=== PATIENT | male | born 1970 | race Caucasian/White ===

== ENCOUNTER 2022-07-12 23:31 | Inpatient (IN) | payer BC ==
[2022-07-12] MEDS ORDERED: ONDANSETRON 4 MG/2 ML VIAL IVP STA (23:47)
[2022-07-12] MEDS ORDERED: HEPARIN SODIUM 1,000 UN/ML (10ML VL) IV ONE (23:47)
[2022-07-12] MEDS ORDERED: SODIUM CHLORIDE 0.9% 1,000 ML IV STA (23:47)
[2022-07-12] MEDS ORDERED: MORPHINE SULFATE 2 MG/ML SYRINGE IVP STA (23:47)
[2022-07-12] MEDS ORDERED: ASPIRIN 81 MG PO STA (23:47)
[2022-07-12] MEDS ORDERED: DEXTROSE 5% IN WATER 50 ML BAG ONE (23:50)
[2022-07-12] MEDS ORDERED: AMIODARONE 50 MG/ML 3 ML VIAL IV ONE (23:50)
[2022-07-12] MEDS ORDERED: ATORVASTATIN 80 MG TAB PO STA (23:53)
[2022-07-12] MEDS ORDERED: NALOXONE 0.4 MG/ML 1 ML VIAL IV PRN (23:57)
--- NOTE | 2022-07-12 23:59 | ED ---
General Adult HPI - General Chief complaint: Chest Pain Stated complaint: Chest Pain,Vomiting Time Seen by Provider: 07/12/22 23:41 Source: patient, RN notes reviewed, old records reviewed Mode of arrival: ambulatory - History of Present Illness Initial comments: 51 yo male presenting with chest pressure for about 2 hours. Patient has no prior history of CAD. He was brought to room 2 and EKG was obtained immediately. This was showing ST segment elevation inferior leads with reciprocal change. medical laboratory assistant was activated. Patient is a nonsmoker. No history diabetes. Patient vomited once prior to arrival. - Related Data Allergies Allergy/AdvReac Type Severity Reaction Status Date / Time No Known Allergies Allergy Verified 07/12/22 23:39 Review of Systems ROS Statement: Those systems with pertinent positive or pertinent negative responses have been documented in the HPI. ROS Other: All systems not noted in ROS Statement are negative. Past Medical History Past Medical History: No Reported History History of Any Multi-Drug Resistant Organisms: None Reported Past Surgical History: No Surgical Hx Reported Past Psychological History: No Psychological Hx Reported Smoking Status: Former smoker Past Alcohol Use History: None Reported Past Drug Use History: None Reported General Exam General appearance: in distress Head exam: Present: atraumatic Eye exam: Present: normal appearance ENT exam: Present: normal exam Respiratory exam: Present: normal lung sounds bilaterally. Absent: respiratory distress Cardiovascular Exam: Present: regular rate, normal rhythm GI/Abdominal exam: Present: soft. Absent: distended, tenderness, guarding Extremities exam: Present: normal inspection, normal capillary refill. Absent: pedal edema, calf tenderness Neurological exam: Present: alert, oriented X3 Skin exam: Present: diaphoretic, pallor Course Vital Signs 07/12/22 07/12/22 23:34 23:54 Temperature 97.5 F L Pulse Rate 82 Pulse Rate [ 59 L Apical] Respiratory 28 H Rate Blood Pressure 132/85 O2 Sat by Pulse 100 Oximetry EKG Findings - EKG Comments: EKG Findings:: Inferior WA rate is 74, LA interval 152, QRS duration 97, QTC 436, ST segment elevation in the inferior leads with reciprocal change. - EKG Results: EKG: interpreted by MIKAELA Medical Decision Making - Medical Decision Making Was pt. sent in by a medical professional or institution (, PA, STRIPPING SHOVEL OPERATOR, urgent care, hospital, or jail...) When possible be specific @ -[No] Did you speak to anyone other than the patient for history (EMS, parent, family, police, friend...)? What history was obtained from this source @ -[No] Did you review nursing and triage notes (agree or disagree)? Why? @ -[I reviewed and agree with nursing and triage notes] Were old charts reviewed (outside hosp., previous admission, EMS record, old EKG, old radiological studies, urgent care reports/EKG's, jail records)? Report findings @ -[No old charts were reviewed] Differential Diagnosis (chest pain, altered mental status, abdominal pain women, abdominal pain men, vaginal bleeding, weakness, fever, dyspnea, syncope, headache, dizziness, GI bleed, back pain, seizure, CVA, palpatations, mental health, musculoskeletal)? @ -[Differential Chest Pain: Stable Angina, Unstable Angina, STEMI, NSTEMI Aortic Dissection, Pneumothorax, Musculoskeletal, Esophageal Spasm GERD, Cholecystitis, Pancreatitis, Zoster, this is not meant to be an all-inclusive list. ] EKG interpreted by me (3pts min.). @ -[As above] X-rays interpreted by me (1pt min.). @ -Chest x-ray results pending CT interpreted by me (1pt min.). @ -[None done] U/S interpreted by me (1pt. min.). @ -[None done] What testing was considered but not performed or refused? (CT, X-rays, U/S, labs)? Why? @ -[None] What meds were considered but not given or refused? Why? @ -[None] Did you discuss the management of the patient with other professionals (professionals i.e. , PA, STRIPPING SHOVEL OPERATOR, lab, RT, psych nurse, social service worker, hemmer lockstitch, teacher, juvenile justice officer, field nurse case manager)? Give summary @ -[Dr. Sorto had spoke with Dr. Demarco, while I managed the pt in the ED, with v-fib arrest, brief episode with return of spontaneous circulation. Was smoking cessation discussed for >3mins.? @ -[No] Was critical care preformed (if so, how long)? @ -[No] Were there social determinants of health that impacted care today? How? (Homelessness, low income, unemployed, alcoholism, drug addiction, transportation, low edu. Level, literacy, decrease access to med. care, fpc, rehab)? @ -[No] Was there de-escalation of care discussed even if they declined (Discuss DNR or withdrawal of care, Hospice)? DNR status @ -[No] What co-morbidities impacted this encounter? (DM, HTN, Smoking, COPD, CAD, Cancer, CVA, ARF, Chemo, Hep., AIDS, mental health diagnosis, sleep apnea, morbid obesity)? @ -[None] Was patient admitted / discharged? Hospital course, mention meds given and route, prescriptions, significant lab abnormalities, going to OR and other pertinent info. @ -[51-year-old male presenting with acute WA, ST segment elevation in the inferior leads with reciprocal change. medical laboratory assistant is activated immediately. After EKGs obtained the patient begins to seize and is found to be in V. fib. Chest compressions are initiated and amiodarone is given as well as one shock with 200 J. Patient returns initially to ventricular tachycardia with a pulse followed by sinus rhythm. Total episode less than 2 minutes. Patient remained alert throughout the remainder of his time in the emergency department awaiting Airplane Rigger. He is given aspirin, heparin, IV fluids and amiodarone.] Undiagnosed new problem with uncertain prognosis? @ -[No] Drug Therapy requiring intensive monitoring for toxicity (Heparin, Nitro, Insulin, Cardizem)? @ -[No] Were any procedures done? @ -[No] Diagnosis/symptom? @ -[ST segment elevated WA] Acute, or Chronic, or Acute on Chronic? @ -[Acute] Uncomplicated (without systemic symptoms) or Complicated (systemic symptoms)? @ -[Complicated Side effects of treatment? @ -[No] Exacerbation, Progression, or Severe Exacerbation? @ -[No] Poses a threat to life or bodily function? How? (Chest pain, USA, WA, pneumonia, PE, COPD, DKA, ARF, appy, cholecystitis, CVA, Diverticulitis, Homicidal, Suicidal, threat to staff... and all critical care pts) @ -[Yes, arrhythmia, cardiac ischemia, cardiogenic shock - Lab Data Result diagrams: 07/12/22 23:59 07/12/22 23:59 Critical Care Time Critical Care Time: Yes Total Critical Care Time: 35 Disposition Clinical Impression: ST elevation myocardial infarction (STEMI), Cardiac arrest with ventricular fibrillation Disposition: ADMITTED IP TO THIS HOSP Condition: Serious Is patient prescribed a controlled substance at d/c from ED?: No Time of Disposition: 23:58
[2022-07-13] MEDS ORDERED: DEXTROSE 5% IN WATER 100 ML with AMIODARONE 150 MG IV ONE ×2
[2022-07-13] MEDS ORDERED: AMIODARONE 360 MG in DEXTROSE 5% IN WATER 200 ML IV ONE ×2 (00:15)
[2022-07-13 00:31] LABS: ALT 30 U/L (4-49); AST 40 U/L (17-59); African American GFR (CKD) >90 (>60 ml/min/1.73 sqM); Albumin 4.6 g/dL (3.5-5.0); Alkaline Phosphatase 83 U/L (38-126); Anion Gap 10 mmol/L; Blood Urea Nitrogen 12 mg/dL (9-20); Calcium 9.2 mg/dL (8.4-10.2); Carbon Dioxide 26 mmol/L (22-30); Chloride 103 mmol/L (98-107); Glucose 148 mg/dL (74-99); Magnesium 1.9 mg/dL (1.6-2.3); Non-African American GFR(CKD) >90 (>60 ml/min/1.73 sqM); Potassium 3.7 mmol/L (3.5-5.1); Sodium 139 mmol/L (137-145); Total Bilirubin 0.7 mg/dL (0.2-1.3); Total Protein 7.8 g/dL (6.3-8.2)
[2022-07-13 00:32] LABS: Basophils % (A) 0 %; Eosinophils % (A) 0 %; HCT 40.6 % (39.0-53.0); HGB 13.9 gm/dL (13.0-17.5); Lymphocytes # (A) 1.2 k/uL (1.0-4.8); Lymphocytes % (A) 10 %; MCH 31.5 pg (25.0-35.0); MCHC 34.2 g/dL (31.0-37.0); MCV 92.1 fL (80.0-100.0); Mean Platelet Volume 9.1; Monocytes # (A) 0.5 k/uL (0-1.0); Monocytes % (A) 5 %; Neutrophils % (A) 84 %; Platelet Count 298 k/uL (150-450); RBC 4.41 m/uL (4.30-5.90); RDW 12.7 % (11.5-15.5)
[2022-07-13 00:38] LABS: INR 0.9 (<1.2); Partial Thromboplastin Time 23.5 sec (22.0-30.0); Prothrombin Time 10.1 sec (9.0-12.0)
[2022-07-13] MEDS ORDERED: SODIUM CHLORIDE 0.9% 1,000 ML IV ONE (00:38)
[2022-07-13] MEDS ORDERED: VERAPAMIL 2.5 MG/ML 2 ML AMP ONE (00:38)
[2022-07-13] MEDS ORDERED: HEPARIN SODIUM 1,000 UN/ML (10ML VL) ONE (00:38)
[2022-07-13] MEDS ORDERED: MIDAZOLAM 2 MG/2 ML VIAL IV ONE (00:39)
[2022-07-13] MEDS ORDERED: LIDOCAINE 1% INJ 10MG/ML (5 ML VIAL-PF) SQ ONE (00:39)
[2022-07-13] MEDS ORDERED: VERAPAMIL SYRINGE (5 MG/10 ML) INTRAARTER ONE (00:41)
[2022-07-13] MEDS ORDERED: MORPHINE SULFATE 4 MG/ML SYRINGE IV ONE (00:43)
[2022-07-13] MEDS ORDERED: MORPHINE SULFATE 4 MG/ML SYRINGE ONE (00:44)
[2022-07-13] MEDS: PHENYLEPHRINE-0.9% NACL SYG 1,000 MCG/10 ML SYRINGE IV ONE ×2 (00:50→01:13)
[2022-07-13] MEDS ORDERED: HEPARIN SODIUM 1,000 UN/ML (10ML VL) IV ONE (00:51)
[2022-07-13] MEDS ORDERED: TICAGRELOR 90 MG TAB PO ONE (00:53)
--- NOTE | 2022-07-13 00:58 | XR ---
EXAMINATION TYPE: XR chest 1V portable DATE OF EXAM: 07/13/2022 COMPARISON: NONE HISTORY: Chest pain TECHNIQUE: Single view FINDINGS: Heart is top normal in size. Lungs are clear of consolidation. There are no hilar masses. T here is left-sided old healed rib fractures. No pleural effusion. IMPRESSION: No active cardiopulmonary disease. No heart failure.
[2022-07-13] MEDS ORDERED: TICAGRELOR 90 MG TAB ONE (00:59)
[2022-07-13] MEDS ORDERED: niCARdipine 25 MG/10 ML VIAL ONE (01:05)
[2022-07-13] MEDS ORDERED: NOREPINEPHRINE 4 MG in SODIUM CHLORIDE 0.9% 250 ML IV ONE (01:22)
[2022-07-13] MEDS ORDERED: ATROPINE SULFATE 0.1 MG/ML 10ML SYRINGE IV PRN (01:30)
[2022-07-13] MEDS ORDERED: SODIUM CHLORIDE 0.9% 1,000 ML in EMPTY BAG 1 BAG IV SCH (01:30)
[2022-07-13] MEDS ORDERED: NITROGLYCERIN SL TABS 0.4 MG TAB SUBLINGUAL PRN (01:30)
[2022-07-13] MEDS ORDERED: ZOLPIDEM 5 MG TAB PO PRN (01:30)
[2022-07-13] MEDS ORDERED: RX INFO: IV CONTRAST WAS GIVEN 1 EACH MISC MISCELLANE PRN (01:30)
[2022-07-13] MEDS ORDERED: MAG HYDROX/AL HYDROX/SIMETH 30 ML CUP PO PRN (01:30)
[2022-07-13] MEDS ORDERED: IOPAMIDOL-370 125ML BTL INJ ONE (01:34)
--- NOTE | 2022-07-13 01:48 | P.PCN ---
Date of Procedure: 07/13/22 Operative Findings: CARDIAC CATHETERIZATION AND PERCUTANEOUS CORONARY INTERVENTION PERFORMING PHYSICIAN: Mark Demarco MD, VI PROCEDURE PERFORMED: 1. Selective right and left coronary angiogram 2. Left heart catheterization 3. Successful stenting of mid RCA using 4.5 x 23 mm Xience LEY with an excellent angiographic results 4. Adjunctive use of manual and mechanical thrombectomy as well as intravascular ultrasound (IVUS) INDICATION: Acute inferior ST elevation myocardial infarction in this 51-year-old gentleman with no prior cardiac history. COMPLICATION: None APPROACH: Right radial artery LEVEL OF SEDATION: Moderate with the sedation time off 43 minutes. DOOR TO BALLOON: 65 minutes PROCEDURE DESCRIPTION: After obtaining an informed consent the patient was brought to cardiac medical laboratory technician. The right radial artery was cannulated using micropuncture technique, the micropuncture wire passed easily then I placed a 6-Kiswahili sheath. The sheath was secured to the skin. Subsequently I gave the patient 2 mg of verapamil intra-arterial and a total of 6000 use of heparin. Initially he was given 4000 use of heparin and subsequently additional 2000 units of heparin given. Selective right coronary angiogram was performed using JR4 catheter. After that I did intervene on the RCA. Then I did selective left coronary angiogram. After that left heart catheterization was performed using 5-Kiswahili pigtail catheter. The procedure was completed was no complication. SELECTIVE CORONARY ANGIOGRAM: The right coronary artery: Large caliber vessel and a dominant vessel. The RCA is occluded in the midportion with extremely large thrombus burden. The mid and distal RCA appeared to be angiographically normal. Left main: Is angiographically normal. Bifurcates into an LCx and LAD. The left main is short. The left circumflex: Large caliber vessel nondominant vessel. The LCx has mild disease in the proximal portion. Gives rise into a large OM branch which appeared to be angiographically normal and the circumflex continue after that as a small- caliber vessel in the AV groove The left anterior descending artery: Large caliber vessel. The LAD proximally has mild disease only. Gives rises into a large diagonal branch which appeared to be angiographically normal. The mid LAD is angiographically normal and gives rises into a second diagonal branch which appeared to be angiographically normal. The LAD distally is angiographically normal HEMODYNAMICS: The left ventricular end-diastolic pressure was 16 mmHg with no significant gradient across aortic valve PCI OF THE RCA: Anticoagulation was initiated using heparin with continuous ACT monitoring. The RCA was cannulated using JR4 catheter. I did cross the acute total occlusion of the RCA using a run-through wire. After the angiogram revealed large thrombus burden and no flow in the right coronary artery I decided to use aspiration thrombectomy. I used the export catheter and I was able to extract large thrombus burden. But in spite of that the flow in the right coronary artery remains LETICIA 2 flow and this thrombus remains extremely large. I attempted doing again manual aspiration thrombectomy again and in spite of that I was able to extract the residual large thrombus burden. At that point I decided to do mechanical thrombectomy. After the catheter was connected to the suction device I did advance the catheter under fluoroscopy guidance over the wire. Mechanical thrombectomy was performed using the Pneumpra device. The following angiogram showed that the flow in the right coronary artery definitely is better and the thrombus size was also slightly better. Please note that intravascular ultrasound was also performed and reviewed a diameter of the right coronary artery in the range of 4.5 mm. Subsequently balloon angioplasty of the right coronary artery was performed using 3.5 x 15 mm balloon. I did perform balloon angioplasty twice were the balloon was inflated under 12 rosendo for 20 seconds. Then I did deploy 4.5 x 23 mm stent where the stent was positioned under fluoroscopy guidance and deployed under 12 rosendo for 20 seconds. The following angiogram showed that the stent at the proximal portion needs to be post dilated. That was performed using 4.5 mm noncompliant balloon which again was inflated under 12 rosendo for 20 seconds only at the proximal portion of the stent. The final angiogram showed excellent angiographic results and the procedure was completed with no complication. CONCLUSION: 1. Acute total occlusion of a large and dominant right coronary artery in the midportion secondary to plaque rupture with a large thrombus burden. Successful PCI was performed as described above 2. Mild disease involving the left coronary system 3. Slightly elevated left-sided filling pressure POSTPROCEDURE MANAGEMENT: 1. Dual antiplatelet therapy using aspirin and Brilinta for 12 month 2. Aggressive cholesterol control 3. Follow-up with the patient
--- NOTE | 2022-07-13 01:53 | P.CRDCN ---
History of Present Illness Consult date: 07/13/22 Chief complaint: Chest discomfort History of present illness: The patient is a 51-year-old gentleman was no significant past medical history of diabetes or hypertension or dyslipidemia on no history of smoking presented to the emergency department complaining of chest discomfort. He was in his usual state of health until last evening when he ate his dinner and right after dinner started experiencing discomfort in the lower chest and upper abdomen. Initially he felt that the discomfort is related to indigestion. Subsequently the discomfort got worse. No radiation to the arms or neck or shoulders or back. He was experiencing also shortness of breath. He presented to the emergency department. The EKG revealed sinus rhythm with acute inferior ST elevation myocardial infarction and subsequently the cardiac feed mill lab technician was activated. While he is waiting in the ER patient developed cardiac arrest was V. fib required cardioversion. Subsequently he was taken emergently to the cardiac feed mill lab technician he underwent a heart catheterization and that revealed acute total occlusion of the right coronary artery which is a large and dominant vess el with large thrombus burden. He underwent successful stenting of the right coronary artery. The left coronary system has mild disease only. After the procedure he was chest pain-free was almost resolving EKG changes. The patient will be admitted to the intensive care unit. He would be on dual antiplatelet therapy along with high intensity statin. Beta miranda and ALEXANDRE inhibitor will be on hold at this point giving that he is hypotensive requiring small doses of norepinephrine to maintain systolic pressure above 90 or mean pressure of 65 mmHg. Meanwhile an echocardiogram will be performed to establish LV function and assess for any wall motion abnormalities. The examination is remarkable for overall mildly bradycardia and mild hypotension. Beside that he does have a regular rhythm with distant heart sounds and clear breathing sounds bilaterally and no lower extremities edema noted Assessment Acute inferior ST elevation myocardial infarction Acute total occlusion of the midright coronary artery with a plaque rupture and large thrombus burden Status post PCI of the right coronary artery Elevated left sided filling pressure Plan Continue dual antiplatelet therapy Start the patient on high intensity statin Hold on any beta miranda in the light of bradycardia and hypotension Hold on ALEXANDRE inhibitor in the light of hypotension Obtain an echocardiogram was Doppler Further recommendation to follow Past Medical History Past Medical History: No Reported History History of Any Multi-Drug Resistant Organisms: None Reported Past Surgical History: No Surgical Hx Reported Past Psychological History: No Psychological Hx Reported Smoking Status: Former smoker Past Alcohol Use History: None Reported Past Drug Use History: None Reported Medications and Allergies Allergies Allergy/AdvReac Type Severity Reaction Status Date / Time No Known Allergies Allergy Verified 07/12/22 23:39 Physical Exam Vitals: Vital Signs Temp Pulse Pulse Resp BP Pulse Ox 07/12/22 23:54 59 L 07/12/22 23:34 97.5 F L 82 28 H 132/85 100 Intake and Output 07/12/22 07/12/22 07/13/22 14:59 22:59 06:59 Intake Total 215 Balance 215 Intake: IV 215 Other: Weight 78.018 kg Results 07/12/22 23:59 07/12/22 23:59 Cardiac Enzymes 07/12/22 07/12/22 Range/Units 23:59 23:59 AST 40 (17-59) U/L Troponin I 0.291 H* (0.000-0.034) ng/mL Coagulation 07/12/22 Range/Units 23:59 PT 10.1 (9.0-12.0) sec APTT 23.5 (22.0-30.0) sec CBC 07/12/22 Range/Units 23:59 WBC 12.0 H (3.8-10.6) k/uL RBC 4.41 (4.30-5.90) m/uL Hgb 13.9 (13.0-17.5) gm/dL Hct 40.6 (39.0-53.0) % Plt Count 298 (150-450) k/uL Comprehensive Metabolic Panel 07/12/22 Range/Units 23:59 Sodium 139 (137-145) mmol/L Potassium 3.7 (3.5-5.1) mmol/L Chloride 103 (98-107) mmol/L Carbon Dioxide 26 (22-30) mmol/L BUN 12 (9-20) mg/dL Creatinine 0.88 (0.66-1.25) mg/dL Glucose 148 H (74-99) mg/dL Calcium 9.2 (8.4-10.2) mg/dL AST 40 (17-59) U/L ALT 30 (4-49) U/L Alkaline Phosphatase 83 (38-126) U/L Total Protein 7.8 (6.3-8.2) g/dL Albumin 4.6 (3.5-5.0) g/dL Current Medications Generic Name Dose Route Start Last Admin Trade Name Freq PRN Reason Stop Dose Admin Al Hydroxide/Mg Hydroxide 30 ml 07/13/22 01:30 Mag Hydrox/Al Hydrox/Simeth 30 Ml Cup PO Q4HR PRN Heartburn Aspirin 81 mg 07/13/22 09:00 Aspirin 81 Mg PO DAILY [facility] Atorvastatin Calcium 80 mg 07/13/22 21:00 Atorvastatin 80 Mg Tab PO HS [facility] Atropine Sulfate 0.5 mg 07/13/22 01:30 Atropine Sulfate 0.1 Mg/Ml 10ml Syringe IV ONCE PRN Symptomatic Bradycardia Amiodarone HCl 360 mg/ 200 mls @ 33.333 mls/hr 07/13/22 00:15 Dextrose/Water IV 07/13/22 06:14 .Q6H ONE Protocol 1 MG/MIN Amiodarone HCl 450 mg/ 250 mls @ 16.667 mls/hr 07/13/22 06:30 Dextrose/Water IV 07/14/22 00:29 .Q15H [facility] Protocol 0.5 MG/MIN Sodium Chloride 1,000 ml/ IV 1,000 mls @ 75 mls/hr 07/13/22 01:30 Solution IV 07/13/22 07:31 .[id number] [facility] Miscellaneous Information 1 each 07/13/22 01:30 Rx Info: Iv Contrast Was Given 1 Each Misc MISCELLANE 07/15/22 01:30 DAILY PRN Per Protocol Naloxone HCl 0.2 mg 07/12/22 23:57 Naloxone 0.4 Mg/Ml 1 Ml Vial IV Q2M PRN Opioid Reversal Nitroglycerin 0.4 mg 07/13/22 01:30 Nitroglycerin Sl Tabs 0.4 Mg Tab SUBLINGUAL Q5M PRN Chest Pain Ticagrelor 90 mg 07/13/22 09:00 Ticagrelor 90 Mg Tab PO BID [facility] Protocol Zolpidem Tartrate 5 mg 07/13/22 01:30 Zolpidem 5 Mg Tab PO HS PRN Insomnia Intake and Output 07/12/22 07/12/22 07/13/22 14:59 22:59 06:59 Intake Total 215 Balance 215 Intake: IV 215 Other: Weight 78.018 kg Patient Weight 07/13/22 06:59 Weight 78.018 kg 07/12/22 23:59 07/12/22 23:59
[2022-07-13 01:58] LABS: Glucose,Whole Blood 210 mg/dL (70-110)
[2022-07-13] MEDS: NOREPINEPHRINE 4 MG in SODIUM CHLORIDE 0.9% 250 ML IV SCH (02:45)
[2022-07-13] MEDS: ONDANSETRON 4 MG/2 ML VIAL IVP PRN ×3 (03:14→17:19)
[2022-07-13 04:55] LABS: Magnesium 1.8 mg/dL (1.6-2.3); Potassium 3.9 mmol/L (3.5-5.1)
[2022-07-13] MEDS: AMIODARONE 450 MG in DEXTROSE 5% IN WATER 250 ML IV SCH ×2 (05:16)
[2022-07-13] MEDS ORDERED: Magnesium Replacement Protocol 1 EACH MISC MISCELLANE PRN (05:21)
[2022-07-13] MEDS ORDERED: MAGNESIUM SULFATE-D5W PMX 1 GM in DEXTROSE/WATER 1 100ML.BAG IVPB ONE (05:30)
[2022-07-13] MEDS: METOPROLOL TARTRATE 12.5 MG TAB PO SCH (09:48)
[2022-07-13] MEDS: TICAGRELOR 90 MG TAB PO SCH ×2 (09:48→20:21)
[2022-07-13] MEDS: ASPIRIN 81 MG PO SCH (09:48)
--- NOTE | 2022-07-13 09:49 | P.PN ---
Subjective Progress Note Date: 07/13/22 The patient is a 51-year-old male who is currently admitted with an acute inferior ST elevated myocardial infarction. He had a V. fib arrest on arrival to the emergency room where he underwent 1 round of CPR with defibrillation. Coronary angiogram revealed acute total occlusion of the RCA with large thrombus burden. Successful thrombectomy and stenting was performed by Dr. Demarco. He was hypotensive and bradycardic thereafter, therefore he was not started on ALEXANDRE inhibitor or beta miranda. Overnight the patient developed frequent PVCs with ventricular triplets. He was started on IV amiodarone. The patient was interviewed and examined lying comfortably in bed. He states he's not had any chest discomfort overnight other than some mild sternal discomfort to palpation, likely secondary to CPR. GENERAL: Well-appearing, well-nourished and in no acute distress. NECK: Supple without JVD or thyromegaly. LUNGS: Breath sounds clear to auscultation bilaterally. Respiration equal and unlabored. No wheezes, rales or rhonchi. HEART: Regular rate and rhythm without murmurs, rubs or gallops. S1 and S2 heard. EXTREMITIES: Normal range of motion, no edema. No clubbing or cyanosis. Peripheral pulses intact and strong. VITALS: Blood pressure 92/74, heart rate 71, respiratory rate 12, afebrile, SpO2 98% on 2 L nasal cannula TELEMETRY: Sinus rhythm overnight. Frequent PVCs with ventricular triplets. Resolved with amiodarone IV. LABS: WBC 12.0, hemoglobin 13.9, hematocrit 40.6, platelet 298, sodium 137, potassium 3.7, BUN 12, creatinine 0.88 IMPRESSION: Inferior wall myocardial infarction with cardiac arrest Status post stenting of RCA Frequent PVCs/NSVT PLAN: Continue IV amiodarone Start low-dose beta miranda Echocardiogram pending Further recommendations based on clinical course I am dictating on behalf of Dr Juan Tong's history/physical and assessment/plan. Objective - Vital Signs Vital signs: Vital Signs Temp 98.0 F 07/13/22 08:00 Pulse 71 07/13/22 08:30 Resp 12 07/13/22 08:30 BP 92/74 07/13/22 08:30 Pulse Ox 98 07/13/22 08:30 FiO2 Intake & Output 03/07/13/22 07/13/22 18:59 06:59 18:59 Intake Total 616.486 150 Output Total 0 0 Balance 616.486 150 Weight 78.018 kg Intake: IV 615 150 Magnesium Sulfate-D5w Pmx 100 1 gm In Dextrose/Water 1 100ml.bag @ 100 mls/hr IVPB ONCE ONE Rx#: [id number] Sodium Chloride 0.9% 1, 300 150 000 ml In Empty Bag 1 bag @ 75 mls/hr IV .[id number] [facility] Rx#:[id number] Intake, IV Titration 1.486 Amount Norepinephrine 4 mg In 1.486 Sodium Chloride 0.9% 250 ml @ 0.03 MCG/KG/MIN 8. 917 mls/hr IV .Q24H [facility] Rx#:[id number] Output: Urine 0 0 Other: Voiding Method Urinal Urinal - Labs CBC & Chem 7: 07/12/22 23:59 07/13/22 03:59 Labs: Abnormal Lab Results - Last 24 Hours (Table) 07/12/22 07/12/22 07/12/22 Range/Units 23:59 23:59 23:59 WBC 12.0 H (3.8-10.6) k/uL Neutrophils # 10.0 H (1.3-7.7) k/uL Glucose 148 H (74-99) mg/dL POC Glucose (mg/dL) (70-110) mg/dL Troponin I 0.291 H* (0.000-0.034) ng/mL 07/13/22 Range/Units 01:56 WBC (3.8-10.6) k/uL Neutrophils # (1.3-7.7) k/uL Glucose (74-99) mg/dL POC Glucose (mg/dL) 210 H (70-110) mg/dL Troponin I (0.000-0.034) ng/mL
[2022-07-13 10:16] VITALS: BMI 24.0
--- NOTE | 2022-07-13 12:11 | P.HPIM ---
History of Present Illness this is a pleasant 51 years old male with no significant past medical history presents because of chest pain, admitted with acute inferior ST elevation myocardial infarction and ventricular fibrillation arrest, he underwent 1 round of CPR with defibrillator. Also he underwent emergent coronary angiogram showingocclusion of the right coronary artery, status post PCI to the RCA. An as per dividing machine operator helper patient is having frequent PVCs and triplets and currently he is on amiodarone drip. patient was hypotensive earlier andcurrently blood pressure improved to 110/73 , is been afebrile Labs showed mild leukocytosis, rest of the CBC, INR chest x-ray: No acute cardiopulmonary process. Review of Systems Review of systems CONSTITUTIONAL: No fever, no malaise, no fatigue. HEENT: No recent visual problems or hearing problems. Denied any sore throat. CARDIOVASCULAR: No orthopnea, PND, no palpitations, no syncope. PULMONARY: No shortness of breath, no cough, no hemoptysis. GASTROINTESTINAL: No diarrhea, no nausea, no vomiting, no abdominal pain. Normoactive bowel sounds. NEUROLOGICAL: No headaches, no weakness, no numbness. HEMATOLOGICAL: Denies any bleeding or petechiae. GENITOURINARY: Denies any burning micturition, frequency, or urgency. MUSCULOSKELETAL/RHEUMATOLOGICAL: Denies any joint pain, swelling, or any muscle pain. ENDOCRINE: Denies any polyuria or polydipsia. Past Medical History Past Medical History: No Reported History History of Any Multi-Drug Resistant Organisms: None Reported Past Surgical History: No Surgical Hx Reported Past Psychological History: No Psychological Hx Reported Smoking Status: Former smoker Past Alcohol Use History: None Reported Past Drug Use History: None Reported Medications and Allergies Home Medications Medication Instructions Recorded Confirmed Type No Known Home Medications 07/13/22 07/13/22 History Allergies Allergy/AdvReac Type Severity Reaction Status Date / Time No Known Allergies Allergy Verified 07/13/22 08:09 Physical Exam Vitals: Vital Signs Temp Pulse Pulse Resp BP Pulse Ox 07/13/22 05:00 91 13 98/75 99 07/13/22 04:50 90 11 L 98/75 99 07/13/22 04:40 89 10 L 98/75 99 07/13/22 04:30 88 12 97/67 98 07/13/22 04:20 86 14 97/67 98 07/13/22 04:10 83 8 L 97/67 99 07/13/22 04:00 98.0 F 80 9 L 102/73 99 07/13/22 03:50 80 10 L 102/73 99 07/13/22 03:40 78 9 L 102/73 97 07/13/22 03:30 84 7 L 98/80 98 07/13/22 03:21 78 11 L 98/80 98 07/13/22 03:10 72 18 116/78 93 L 07/13/22 03:00 64 12 96/70 96 07/13/22 02:50 67 10 L 96/70 90 L 07/13/22 02:42 59 L 8 L 100/72 97 07/13/22 02:30 71 9 L 86/66 97 07/13/22 02:24 60 10 L 86/66 98 07/13/22 02:10 65 6 L 96/70 97 07/13/22 02:00 98.3 F 75 10 L 103/71 97 07/13/22 01:54 72 20 07/12/22 23:54 59 L 07/12/22 23:34 97.5 F L 82 28 H 132/85 100 Intake and Output 07/12/22 07/12/22 07/13/22 14:59 22:59 06:59 Intake Total 516.486 Output Total 0 Balance 516.486 Intake: IV 515 Sodium Chloride 0.9% 1, 300 000 ml In Empty Bag 1 bag @ 75 mls/hr IV .[id number] [facility] Rx#:[id number] Intake, IV Titration 1.486 Amount Norepinephrine 4 mg In 1.486 Sodium Chloride 0.9% 250 ml @ 0.03 MCG/KG/MIN 8. 917 mls/hr IV .Q24H [facility] Rx#:[id number] Output: Urine 0 Other: Voiding Method Urinal Weight 78.018 kg GENERAL: The patient is alert and oriented x3, not in any acute distress. Well developed, well nourished. HEENT: Pupils are round and equally reacting to light. EOMI. No scleral icterus. No conjunctival pallor. Normocephalic, atraumatic. No pharyngeal erythema. No thyromegaly. CARDIOVASCULAR: S1 and S2 present. No murmurs, rubs, or gallops. PULMONARY: Chest is clear to auscultation, no wheezing or crackles. ABDOMEN: Soft, nontender, nondistended, normoactive bowel sounds. No palpable organomegaly. MUSCULOSKELETAL: No joint swelling or deformity. EXTREMITIES: No cyanosis, clubbing, or pedal edema. NEUROLOGICAL: Gross neurological examination did not reveal any focal deficits. SKIN: No rashes. no petechiae. Results CBC & Chem 7: 07/12/22 23:59 07/13/22 03:59 Labs: Abnormal Lab Results - Last 24 Hours (Table) 07/12/22 07/12/22 07/12/22 Range/Units 23:59 23:59 23:59 WBC 12.0 H (3.8-10.6) k/uL Neutrophils # 10.0 H (1.3-7.7) k/uL Glucose 148 H (74-99) mg/dL POC Glucose (mg/dL) (70-110) mg/dL Troponin I 0.291 H* (0.000-0.034) ng/mL 07/13/22 Range/Units 01:56 WBC (3.8-10.6) k/uL Neutrophils # (1.3-7.7) k/uL Glucose (74-99) mg/dL POC Glucose (mg/dL) 210 H (70-110) mg/dL Troponin I (0.000-0.034) ng/mL Assessment and Plan Assessment: Acute ST elevation may cardiology infarction status post PCI to the RCA Ventricular fibrillation status post 1 round of CPR Frequent PVCs and ventricular triplets Plan: Continue with amiodarone drip Continue with dual antiplatelet therapycurrently is on aspirin and brillinta continue With statin Check echocardiogram Cardiology consult Labs and medication were reviewed.. Continue same treatment. Continue with symptomatic treatment. Resume home medication. Monitor labs and vitals. DVT and GI prophylaxis. Further recommendations as per clinical course of the patient DVT prophylaxis: Subcutaneous heparin GI Prophylaxis: Pepcid PT/OT: Pending Prognosis is guarded
--- NOTE | 2022-07-13 17:49 | CA ---
Transthoracic Echo Report Name: Polo Kramer Age: 51 Gender: M : 1970 Exam Date: 07/13/2022 08:33 Exam Location: [facility] Ht (in): 71 Wt (lb): 172 Ordering Physician: Mark Demarco MD ([id number]) Attending/Referring Phys: Community Service Worker Nery Duong RDCS Procedure CPT: Indications: stemi Cardiac Hx: Technical Quality: Good Contrast 1: Total Dose (mL): Contrast 2: Total Dose (mL): MEASUREMENTS (Male / Female) Normal Values 2D ECHO LV Diastolic Diameter PLAX 4.9 cm 4.2 - 5.9 / 3.9 - 5.3 cm LV Systolic Diameter PLAX 4.3 cm IVS Diastolic Thickness 1.2 cm 0.6 - 1.0 / 0.6 - 0.9 cm LVPW Diastolic Thickness 1.2 cm 0.6 - 1.0 / 0.6 - 0.9 cm LV Relative Wall Thickness 0.5 RV Internal Dim ED PLAX 3.4 cm LA Systolic Diameter LX 3.4 cm 3.0 - 4.0 / 2.7 - 3.8 cm LV Diastolic Volume MOD 4C 117.7 cm??? LV Systolic Volume MOD 4C 62.8 cm??? LV Ejection Fraction MOD 4C 46.7 % LV Diastolic Length 4C 8.5 cm LV Systolic Length 4C 7.0 cm LV Diastolic Volume MOD 2C 134.9 cm??? LV Systolic Volume MOD 2C 80.5 cm??? LV Ejection Fraction MOD 2C 40.4 % LV Diastolic Length 2C 8.7 cm LV Systolic Length 2C 7.3 cm LA Volume 50.0 cm??? 18 - 58 / 22 - 52 cm??? M-MODE Aortic Root Diameter MM 3.8 cm MV E Point Septal Separation 0.5 cm AV Cusp Separation MM 3.0 cm DOPPLER AV Peak Velocity 100.8 cm/s AV Peak Gradient 4.1 mmHg MV Area PHT 6.3 cm??? Mitral E Point Velocity 50.2 cm/s Mitral A Point Velocity 72.9 cm/s Mitral E to A Ratio 0.7 MV Deceleration Time 120.9 ms MV E' Velocity 4.9 cm/s Mitral E to MV E' Ratio 10.3 TR Peak Velocity 188.8 cm/s TR Peak Gradient 14.3 mmHg Right Atrial Pressure 15.0 mmHg Pulmonary Artery Systolic Pressu 29.3 mmHg Right Ventricular Systolic Press 29.3 mmHg FINDINGS Left Ventricle Left ventricular ejection fraction is estimated at 30-35 %. Left ventricular cavity size normal. Borderline left ventricular hypertrophy. Basel inferior hypokinesis, basel septal hypokinesis. Moderately reduced global left ventricular systolic function. Right Ventricle Mild right ventricular dilatation. Right ventricular systolic pressure within normal limits. Right Atrium Normal right atrial size. Left Atrium Normal left atrial size. Mitral Valve Structurally normal mitral valve. Trace to mild mitral regurgitation. Aortic Valve Trileaflet aortic valve. No aortic valve stenosis or regurgitation. Tricuspid Valve Structurally normal tricuspid valve. Mild tricuspid regurgitation. Pulmonic Valve Structurally normal pulmonic valve. No pulmonic regurgitation. Pericardium Normal pericardium. No pericardial effusion. Aorta Mild aortic dilatation at the level of the sinuses of valsalva 38 mm CONCLUSIONS Left ventricular ejection fraction 30-35% with inferior septal hypokinesis and mild global hypokinesis Trace to mild mitral regurgitation Mild tricuspid regurgitation RVSP 29 Aortic root measuring 3.8cm Previewed by: Dr. Jose Carlos Lujan DO (Electronically Signed) Final Date: 13 July 2022 17:48
[2022-07-13] MEDS: ATORVASTATIN 80 MG TAB PO SCH (20:21)
[2022-07-14 06:22] LABS: HCT 35.3 % (39.0-53.0); HGB 11.9 gm/dL (13.0-17.5); MCH 31.6 pg (25.0-35.0); MCHC 33.7 g/dL (31.0-37.0); Mean Platelet Volume 9.5; Platelet Count 214 k/uL (150-450); RBC 3.75 m/uL (4.30-5.90); WBC 7.3 k/uL (3.8-10.6)
[2022-07-14 06:36] LABS: African American GFR (CKD) >90 (>60 ml/min/1.73 sqM); Anion Gap 5 mmol/L; Blood Urea Nitrogen 10 mg/dL (9-20); Calcium 8.5 mg/dL (8.4-10.2); Carbon Dioxide 26 mmol/L (22-30); Chloride 105 mmol/L (98-107); Glucose 102 mg/dL (74-99); Magnesium 2.1 mg/dL (1.6-2.3); Non-African American GFR(CKD) >90 (>60 ml/min/1.73 sqM); Potassium 4.2 mmol/L (3.5-5.1); Sodium 136 mmol/L (137-145)
[2022-07-14] MEDS: NOREPINEPHRINE 4 MG in SODIUM CHLORIDE 0.9% 250 ML IV SCH (07:36)
[2022-07-14] MEDS: ASPIRIN 81 MG PO SCH (08:03)
[2022-07-14] MEDS: TICAGRELOR 90 MG TAB PO SCH ×2 (08:03→19:26)
[2022-07-14] MEDS: METOPROLOL TARTRATE 12.5 MG TAB PO SCH (08:03)
[2022-07-14] MEDS: AMIODARONE 450 MG in DEXTROSE 5% IN WATER 250 ML IV SCH ×2 (10:10)
[2022-07-14] MEDS: AMIODARONE 200 MG TAB PO SCH ×2 (10:13→19:26)
--- NOTE | 2022-07-14 12:36 | P.PN ---
Subjective Progress Note Date: 07/14/22 The patient is a 51-year-old male who is currently admitted with an acute inferior ST elevated myocardial infarction. He had a V. fib arrest on arrival to the emergency room where he underwent 1 round of CPR with defibrillation. Coronary angiogram revealed acute total occlusion of the RCA with large thrombus burden. Successful thrombectomy and stenting was performed by Dr. Demarco. Postoperatively he has had frequent PVCs and ventricular triplets. No sustained episodes of ventricular tachycardia. Echocardiogram reveals reduced LV function at 30-35% with inferior septal hypokinesis and mild global hypokinesis The patient states he rested well overnight and has no current chest pain or chest pressure. He has been up ambulating to the restroom without issue. He denies any dizziness or lightheadedness. No difficulty breathing. GENERAL: Well-appearing, well-nourished and in no acute distress. NECK: Supple without JVD or thyromegaly. LUNGS: Breath sounds clear to auscultation bilaterally. Respiration equal and unlabored. No wheezes, rales or rhonchi. HEART: Regular rate and rhythm without murmurs, rubs or gallops. S1 and S2 heard. EXTREMITIES: Normal range of motion, no edema. No clubbing or cyanosis. Peripheral pulses intact and strong. Right radial site is mildly bruised. No hematoma or bruit. VITALS: Blood pressure 102/77, pulse 52, respiratory rate 13, afebrile, SpO2 97% on room air TELEMETRY: Sinus rhythm overnight. Frequent PVCs with ventricular triplets. LABS: WBC 7.3, hemoglobin 11.9, hematocrit 35.3, platelet 214, sodium 136, potassium 4.2, BUN 10, creatinine 0.64, magnesium 2.1 IMPRESSION: Inferior wall myocardial infarction with cardiac arrest Status post stenting of RCA Ischemic cardiomyopathy, EF 30-35% Frequent PVCs/NSVT PLAN: Continue oral amiodarone for 1 week only Maximize beta miranda Start 12.5milligrams of Aldactone mid day to avoid hypotension Patient will be discharged with a LifeVest next week Further recommendations to be based upon clinical course Patient may be downgraded to 3 S. I am dictating on behalf of Dr Juan Tong's history/physical and assessment/plan. Objective - Vital Signs Vital signs: Vital Signs Temp 97.9 F 07/14/22 08:00 Pulse 52 L 07/14/22 11:00 Resp 13 07/14/22 11:00 BP 102/77 07/14/22 11:00 Pulse Ox 97 07/14/22 11:00 FiO2 Intake & Output 07/13/22 07/14/22 07/14/22 18:59 06:59 18:59 Intake Total 260 410 270 Output Total 900 1250 300 Balance -640 -840 -30 Weight 78.018 kg 86.6 kg Intake: IV 260 110 30 Invasive Line 1 20 Sodium Chloride 0.9% 1 260 110 10 000 ml In Empty Bag 1 bag @ 75 mls/hr IV .[id number] [facility] Rx#:[id number] Intake, IV Titration 250 Amount Amiodarone 450 mg In 250 Dextrose 5% in Water 250 ml @ 0.5 MG/MIN 16.667 mls/hr IV .Q15H [facility] Rx#: [id number] Oral 50 240 Output: Urine 900 1250 300 Other: Voiding Method Bedside Commode Bedside Commode Toilet - Labs CBC & Chem 7: 07/14/22 05:15 07/14/22 05:15 Labs: Abnormal Lab Results - Last 24 Hours (Table) 07/14/22 07/14/22 Range/Units 05:15 05:15 RBC 3.75 L (4.30-5.90) m/uL Hgb 11.9 L (13.0-17.5) gm/dL Hct 35.3 L (39.0-53.0) % Sodium 136 L (137-145) mmol/L Creatinine 0.64 L (0.66-1.25) mg/dL Glucose 102 H (74-99) mg/dL
[2022-07-14] MEDS: SPIRONOLACTONE 25 MG TAB PO SCH (12:38)
[2022-07-14] MEDS: ATORVASTATIN 80 MG TAB PO SCH (19:26)
--- NOTE | 2022-07-14 23:38 | P.PN ---
Subjective this is a pleasant 51 years old male with no significant past medical history presents because of chest pain, admitted with acute inferior ST elevation myocardial infarction and ventricular fibrillation arrest, he underwent 1 round of CPR with defibrillator. Also he underwent emergent coronary angiogram showingocclusion of the right coronary artery, status post PCI to the RCA. An as per circulation worker patient is having frequent PVCs and triplets and currently he is on amiodarone drip. patient was hypotensive earlier andcurrently blood pressure improved to 110/73 , is been afebrile Labs showed mild leukocytosis, rest of the CBC, INR chest x-ray: No acute cardiopulmonary process. 07/14/2022 Patient today feels better no chest pain or palpitation or dizziness Amiodarone was switched to oral dose per circulation worker as well as metoprolol dose increased to 25 mg and Aldactone added small dose Ejection fraction 30-35%, this resulted discussed with the patient Labs reviewed and looks stable. Hemodynamically stable Patient will be documented to [address] [id number] Objective - Vital Signs Vital signs: Vital Signs Temp 97.9 F 07/14/22 08:00 Pulse 53 L 07/14/22 10:00 Resp 13 07/14/22 10:00 BP 106/66 07/14/22 10:00 Pulse Ox 99 07/14/22 07:00 FiO2 Intake & Output 07/13/22 07/14/22 07/14/22 18:59 06:59 18:59 Intake Total 260 410 260 Output Total 900 1250 150 Balance -640 -840 110 Weight 78.018 kg 86.6 kg Intake: IV 260 110 20 Invasive Line 1 10 Sodium Chloride 0.9% 1, 260 110 10 000 ml In Empty Bag 1 bag @ 75 mls/hr IV .[id number] [facility] Rx#:[id number] Intake, IV Titration 250 Amount Amiodarone 450 mg In 250 Dextrose 5% in Water 250 ml @ 0.5 MG/MIN 16.667 mls/hr IV .Q15H [facility] Rx#: [id number] Oral 50 240 Output: Urine 900 1250 150 Other: Voiding Method Bedside Commode Bedside Commode Toilet - Exam GENERAL: The patient is alert and oriented x3, not in any acute distress. Well developed, well nourished. HEENT: Pupils are round and equally reacting to light. EOMI. No scleral icterus. No conjunctival pallor. Normocephalic, atraumatic. No pharyngeal erythema. No thyromegaly. CARDIOVASCULAR: S1 and S2 present. No murmurs, rubs, or gallops. PULMONARY: Chest is clear to auscultation, no wheezing or crackles. ABDOMEN: Soft, nontender, nondistended, normoactive bowel sounds. No palpable organomegaly. MUSCULOSKELETAL: No joint swelling or deformity. EXTREMITIES: No cyanosis, clubbing, or pedal edema. NEUROLOGICAL: Gross neurological examination did not reveal any focal deficits. SKIN: No rashes. no petechiae. - Labs CBC & Chem 7: 07/14/22 05:15 07/14/22 05:15 Labs: Abnormal Lab Results - Last 24 Hours (Table) 07/14/22 07/14/22 Range/Units 05:15 05:15 RBC 3.75 L (4.30-5.90) m/uL Hgb 11.9 L (13.0-17.5) gm/dL Hct 35.3 L (39.0-53.0) % Sodium 136 L (137-145) mmol/L Creatinine 0.64 L (0.66-1.25) mg/dL Glucose 102 H (74-99) mg/dL Assessment and Plan Assessment: Acute ST elevation may cardiology infarction status post PCI to the RCA Ventricular fibrillation status post 1 round of CPR Frequent PVCs and ventricular triplets Plan: Continue with amiodarone orally per circulation worker Continue with dual antiplatelet therapycurrently is on aspirin and brillinta continue With statin Cardiology consult on the case Continue with metoprolol and spironolactone Labs and medication were reviewed.. Continue same treatment. Continue with symptomatic treatment. Resume home medication. Monitor labs and vitals. DVT and GI prophylaxis. Further recommendations as per clinical course of the patient DVT prophylaxis: Subcutaneous heparin GI Prophylaxis: Pepcid Prognosis is guarded
[2022-07-15] MEDS: TICAGRELOR 90 MG TAB PO SCH ×2 (07:36→19:55)
[2022-07-15] MEDS: AMIODARONE 200 MG TAB PO SCH ×2 (07:36→19:55)
[2022-07-15] MEDS: ASPIRIN 81 MG PO SCH (07:36)
[2022-07-15] MEDS ORDERED: METOPROLOL TARTRATE 25 MG TAB PO SCH (09:00)
[2022-07-15] MEDS: SPIRONOLACTONE 25 MG TAB PO SCH (11:07)
--- NOTE | 2022-07-15 11:48 | P.PN ---
Subjective Progress Note Date: 07/15/22 The patient is a 51-year-old male who is currently admitted with an acute inferior ST elevated myocardial infarction. He had a V. fib arrest on arrival to the emergency room where he underwent 1 round of CPR with defibrillation. Coronary angiogram revealed acute total occlusion of the RCA with large thrombus burden. Successful thrombectomy and stenting was performed by Dr. Demarco. Postoperatively he has had frequent PVCs and ventricular triplets. No sustained episodes of ventricular tachycardia. Echocardiogram reveals reduced LV function at 30-35% with inferior septal hypokinesis and mild global hypokinesis / The patient states he rested well overnight and has no current chest pain or chest pressure. He has been up ambulating to the restroom without issue. He denies any dizziness or lightheadedness. No difficulty breathing. Heart rate 57, blood pressure 109/72, pulse ox 99% on room air. Telemetry is sinus rhythm with less PVCs GENERAL: Well-appearing, well-nourished and in no acute distress. NECK: Supple without JVD or thyromegaly. LUNGS: Breath sounds clear to auscultation bilaterally. Respiration equal and unlabored. No wheezes, rales or rhonchi. HEART: Regular rate and rhythm without murmurs, rubs or gallops. S1 and S2 heard. EXTREMITIES: Normal range of motion, no edema. No clubbing or cyanosis. Peripheral pulses intact and strong. Right radial site is mildly bruised. No hematoma or bruit. IMPRESSION: Inferior wall myocardial infarction with cardiac arrest Status post stenting of RCA Ischemic cardiomyopathy, EF 30-35% Frequent PVCs/NSVT PLAN: Continue current cardiac medications Change beta miranda to Coreg 3.125 mg twice daily and start tonight Patient will be discharged with a LifeVest next week Further recommendations to be based upon clinical course I am dictating on behalf of Dr Juan Tong's history/physical and assessment/plan. Objective - Vital Signs Vital signs: Vital Signs Temp 98.1 F 07/15/22 07:31 Pulse 72 07/15/22 07:31 Resp 16 07/15/22 07:31 BP 121/84 07/15/22 07:31 Pulse Ox 98 07/15/22 07:31 FiO2 Intake & Output 07/14/22 07/15/22 07/15/22 18:59 06:59 18:59 Intake Total 525 180 Output Total 900 300 Balance -375 -300 180 Intake: IV 45 Invasive Line 1 35 Sodium Chloride 0.9% 1, 10 000 ml In Empty Bag 1 bag @ 75 mls/hr IV .[id number] [facility] Rx#:[id number] Oral 480 180 Output: Urine 900 300 Other: Voiding Method Toilet Toilet Toilet # Voids 1 - Labs CBC & Chem 7: 07/14/22 05:15 07/14/22 05:15
--- NOTE | 2022-07-15 11:49 | P.PN ---
Progress Note - Text 51-year-old male patient who presented with an acute inferior wall NJ RCA was dominant and occluded in the midportion with a large thrombus burden The left main, left circumflex 81 normal LVEDP was 16 mmHg However the follow-up 2-D echo revealed severely reduced LV systolic function in the range of 30-35% We are maximizing his medications slowly since his blood pressures were low initially He presented with ventricle fibrillation and continued to have episodes of VF following the procedure Suggest In view of his recent NJ, severe ischemic cardio myopathy that appears out of proportion to what would be expected after an inferior wall NJ and episodes of ventricular fibrillation requiring defibrillation, I would advise an external ICD rest for 3-4 months until his LV function improves
[2022-07-15] MEDS: carvediloL 3.125 MG TAB PO SCH (17:04)
[2022-07-15] MEDS: ATORVASTATIN 80 MG TAB PO SCH (19:55)
[2022-07-16] MEDS: carvediloL 3.125 MG TAB PO SCH (06:44)
[2022-07-16] MEDS: ASPIRIN 81 MG PO SCH (09:04)
[2022-07-16] MEDS: AMIODARONE 200 MG TAB PO SCH (09:04)
[2022-07-16] MEDS: TICAGRELOR 90 MG TAB PO SCH (09:04)
--- NOTE | 2022-07-16 13:10 | P.PN ---
Subjective Progress Note Date: 07/16/22 HISTORY OF PRESENT ILLNESS: 07/13/2022 The patient is a 51-year-old gentleman was no significant past medical history of diabetes or hypertension or dyslipidemia on no history of smoking presented to the emergency department complaining of chest discomfort. He was in his usual state of health until last evening when he ate his dinner and right after dinner started experiencing discomfort in the lower chest and upper abdomen. Initially he felt that the discomfort is related to indigestion. Subsequently the discomfort got worse. No radiation to the arms or neck or shoulders or back. He was experiencing also shortness of breath. He presented to the emergency department. The EKG revealed sinus rhythm with acute inferior ST elevation myocardial infarction and subsequently the cardiac laborer prestressed concrete was activated. While he is waiting in the ER patient developed cardiac arrest was V. fib required cardioversion. Subsequently he was taken emergently to the cardiac laborer prestressed concrete he underwent a heart catheterization and that revealed acute total occlusion of the right coronary artery which is a large and dominant vessel with large thrombus burden. He underwent successful stenting of the right coronary artery. The left coronary system has mild disease only. After the procedure he was chest pain-free was almost resolving EKG changes. The patient will be admitted to the intensive care unit. He would be on dual antiplatelet therapy along with high intensity statin. Beta miranda and ALEXANDRE inhibitor will be on hold at this point giving that he is hypotensive requiring small doses of norepinephrine to maintain systolic pressure above 90 or mean pressure of 65 mmHg. Meanwhile an echocardiogram will be performed to establish LV function and assess for any wall motion abnormalities. The examination is remarkable for overall mildly bradycardia and mild hypotension. Beside that he does have a regular rhythm with distant heart sounds and clear breathing sounds bilaterally and no lower extremities edema noted 07/13/2022 The patient was interviewed and examined lying comfortably in bed. He states he's not had any chest discomfort overnight other than some mild sternal discomfort to palpation, likely secondary to CPR. 07/14/2022 The patient states he rested well overnight and has no current chest pain or chest pressure. He has been up ambulating to the restroom without issue. He denies any dizziness or lightheadedness. No difficulty breathing. 07/15 The patient states he rested well overnight and has no current chest pain or chest pressure. He has been up ambulating to the restroom without issue. He denies any dizziness or lightheadedness. No difficulty breathing. Heart rate 57, blood pressure 109/72, pulse ox 99% on room air. Telemetry is sinus rhythm with less PVCs 07/16/2022 Patient examined this morning at the bedside. Patient denies chest pain or pressure. He denies shortness of breath. He has been up ambulating to the bathroom without difficulty. Vital signs are stable. Telemetry reveals sinus mechanism. PHYSICAL EXAM: VITAL SIGNS: Reviewed. GENERAL: Well-developed in no acute distress. NECK: Supple. No JVD or thyromegaly LUNGS: Respirations even and unlabored. Lungs essentially clear to auscultation bilaterally. HEART: Regular rate and rhythm. S1 and S2 heard. EXTREMITIES: Normal range of motion. No clubbing or cyanosis. Peripheral pulses intact. No lower extremity edema ASSESSMENT: Acute inferior STEMI Acute total occlusion of mid right coronary artery with plaque rupture and large thrombus burden Status post PCI of right coronary artery Elevated left-sided filling pressures Ischemic cardiomyopathy, ejection fraction 30-35% Frequent PVCs/NSVT PLAN: Continue current cardiac medications Continue to antiplatelet therapy with aspirin and Brilinta Continue high intensity statin. Currently on atorvastatin 80 mg at HS. Add lisinopril 2.5 mg daily Patient to receive life vest today Patient to be discharged home this afternoon Patient to follow up outpatient with Dr. Demarco Nurse practitioner note has been reviewed by physician. Signing provider agrees with the documented findings, assessment, and plan of care. Objective - Vital Signs Vital signs: Vital Signs Temp 98.4 F 07/16/22 08:00 Pulse 67 07/16/22 08:00 Resp 18 07/16/22 08:00 BP 117/71 07/16/22 08:00 Pulse Ox 98 07/16/22 12:03 FiO2 Intake & Output 07/15/22 07/16/22 07/16/22 18:59 06:59 18:59 Intake Total 540 540 0 Balance 540 540 0 Weight 79.2 kg Intake: Oral 540 540 0 Other: Voiding Method Toilet Toilet # Voids 2 1 - Labs CBC & Chem 7: 07/14/22 05:15 07/14/22 05:15
[2022-07-16 13:20] VITALS: BP 120/68; PULSE 61; RESP 16; TEMP 97.6
[2022-07-16] MEDS: SPIRONOLACTONE 25 MG TAB PO SCH (13:22)
--- NOTE | 2022-07-17 06:22 | P.DS ---
Providers Date of admission: 07/12/22 23:57 Expected date of discharge: 07/16/22 Attending physician: Aman Barajas MD Consults: 07/12/22 23:57 Consult Physician Stat Consulting Provider: Mark Demarco Consult Reason/Comments: STEMI Do you want consulting provider notified?: Yes 07/13/22 01:30 Consult Physician Routine Consulting Provider: [facility] Consult Reason/Comments: Post Interventional Patient Do you want consulting provider notified?: Already Contacted Primary care physician: Mary Pete Hospital Course: Final diagnosis Acute ST elevation myocardial infarction status post PCI to the RCA Ventricular fibrillation status post 1 round of CPR Frequent PVCs and ventricular triplets Discharge disposition Patient is being discharged in a stable condition with guarded prognosis to home with a LifeVest. Patient will follow-up with Dr. Pete in the outpatient setting upon discharge. Patient is to follow-up with cardiology in one week as scheduled. Total time taken is greater than 35 minutes. Hospital course This is a 51-year-old male who was recently admitted with chest pain and found to have a STEMI and had stenting to the RCA. Patient's EF less than 30% with cardiology following and being planned for LifeVest. Patient to continue with current medications as prescribed below with close outpatient follow-up. Patient instructed to follow-up with primary care provider this week. Patient reports to feeling well until he could go home. Currently no reports of chest pain, shortness of breath, or palpitations. Patient is afebrile. No reports of nausea or vomiting and patient is tolerating diet. Patient will be discharged home today. Guarded prognosis. Physical exam: Gen: This is a 51-year-old male who is awake, alert and oriented 3, well- developed, well-nourished HEENT: Head is atraumatic, normocephalic. Pupils equal, round. Sclerae is anicteric. NECK: Supple. No JVD. No lymphadenopathy. No thyromegaly. LUNGS: Diminished breath sounds bilaterally with no wheezes or rhonchi. No intercostal retractions. HEART: S1, S2 are muffled ABDOMEN: Soft. Bowel sounds are present. No masses. No tenderness. EXTREMITIES: No pedal edema. No calf tenderness. NEUROLOGICAL: Patient is awake, alert and oriented x3. Cranial nerves 2 through 12 are grossly intact. Please refer to medication reconciliation sheet for a list of medications. The impression and plan of care has been dictated by Sandy Dobbs, Nurse Practitioner as directed. Dr. Tc MD I have performed a history and examination and MDM of this patient, discussed the same with the dictator, and agree with the dictator's assessment and plan as written ,documented as a scribe. Based on total visit time, I have performed more than 50% of the visit. Patient Condition at Discharge: Fair Plan - Discharge Summary New Discharge Prescriptions: New Spironolactone [Aldactone] 12.5 mg PO DAILY@1200 30 Days #15 tab Aspirin 81 mg PO DAILY #30 tab lisinopriL [Zestril] 2.5 mg PO DAILY #30 tab Ticagrelor [Brilinta] 90 mg PO BID 30 Days #60 tab Amiodarone [Cordarone] 400 mg PO BID 30 Days #120 tab carvediloL [Coreg] 3.125 mg PO BID-W/MEALS #60 tab Atorvastatin [Lipitor] 80 mg PO HS #30 tab Nitroglycerin Sl Tabs [Nitrostat] 0.4 mg SUBLINGUAL Q5M PRN #30 tab PRN Reason: Chest Pain Discharge Medication List Amiodarone [Cordarone] 400 mg PO BID 30 Days #120 tab 07/16/22 [Rx] Aspirin 81 mg PO DAILY #30 tab 07/16/22 [Rx] Atorvastatin [Lipitor] 80 mg PO HS #30 tab 07/16/22 [Rx] Nitroglycerin Sl Tabs [Nitrostat] 0.4 mg SUBLINGUAL Q5M PRN #30 tab 07/16/22 [Rx] Spironolactone [Aldactone] 12.5 mg PO DAILY@1200 30 Days #15 tab 07/16/22 [Rx] Ticagrelor [Brilinta] 90 mg PO BID 30 Days #60 tab 07/16/22 [Rx] carvediloL [Coreg] 3.125 mg PO BID-W/MEALS #60 tab 07/16/22 [Rx] lisinopriL [Zestril] 2.5 mg PO DAILY #30 tab 07/16/22 [Rx] Follow up Appointment(s)/Referral(s): Mark Demarco MD [STAFF PHYSICIAN] - 1 Week (Cardio office will call you with an appointment.) Mary Pete MD [Primary Care Provider] - 1 Week Patient Instructions/Handouts: Heart Attack (DC), Heart Healthy Diet (DC), Seasoning Without Salt (DC), Low-Sodium Diet (ED), After Radial Heart Catheterization (GEN), Mediterranean Diet (DC) Activity/Diet/Wound Care/Special Instructions: Activity Limited until follow-up Follow-up primary care provider on discharge follow-up cardiology in one week Continue heart healthy cardiac diet Continue taking medications as prescribed Discharge Disposition: HOME SELF-CARE
== END 2022-07-16 16:04 | disposition home or self-care (01) | DRG 246 ==
LOC: EC 23:31 → 2SICU 23:57 → 3SCARD 07-14 13:54
PROVIDERS: ADMIT Internal Medicine; ATTEND Internal Medicine
PROC: 5A12012 Performance of Cardiac Output, Single, Manual (ICD-10-PCS; 2022-07-12)
PROC: 5A2204Z Restoration of Cardiac Rhythm, Single (ICD-10-PCS; 2022-07-12)
PROC: B2111ZZ Fluoroscopy of Multiple Coronary Arteries using Low Osmolar Contrast (ICD-10-PCS; 2022-07-13)
PROC: 4A023N7 Measurement of Cardiac Sampling and Pressure, Left Heart, Percutaneous Approach (ICD-10-PCS; 2022-07-13)
PROC: B240ZZ3 Ultrasonography of Single Coronary Artery, Intravascular (ICD-10-PCS; 2022-07-13)
PROC: 3E033XZ Introduction of Vasopressor into Peripheral Vein, Percutaneous Approach (ICD-10-PCS; 2022-07-13)
PROC: 027034Z Dilation of Coronary Artery, One Artery with Drug-eluting Intraluminal Device, Percutaneous Approach (ICD-10-PCS; principal; 2022-07-13 00:11)
PROC: 02C03ZZ Extirpation of Matter from Coronary Artery, One Artery, Percutaneous Approach (ICD-10-PCS; 2022-07-13 00:11)
DX: I21.19 ST elevation (STEMI) myocardial infarction involving other coronary artery of inferior wall (principal); I46.2 Cardiac arrest due to underlying cardiac condition; I49.01 Ventricular fibrillation; I47.20 Ventricular tachycardia, unspecified; I25.119 Atherosclerotic heart disease of native coronary artery with unspecified angina pectoris; I49.3 Ventricular premature depolarization; I25.5 Ischemic cardiomyopathy; Z87.891 Personal history of nicotine dependence; Z28.310 Unvaccinated for COVID-19
CPT/HCPCS: 71045; 80048; 80053; 83735; 84132; 84484; 85025; 85027; 85610; 85730; 92973; 92978; 93306; 93458; 94760; 96361; 96365; 96368; 96375; 99291

== ENCOUNTER 2024-04-21 22:38 | Inpatient (IN) | payer BC ==
[2024-04-21] MEDS: SODIUM CHLORIDE 0.9% 1,000 ML IV ONE
[2024-04-21] MEDS ORDERED: NALOXONE 0.4 MG/ML 1 ML VIAL IV PRN (23:00)
--- NOTE | 2024-04-21 23:00 | ED ---
Chest Pain HPI - General Chief Complaint: Chest Pain Stated Complaint: chest pain Time Seen by Provider: 04/21/24 22:56 Source: patient Mode of arrival: wheelchair Limitations: no limitations - History of Present Illness Initial Comments: Polo Gonzalez 3-year-old male with history of CAD had a STEMI in June 2022 and had a drug-eluting stent to the RCA. Patient is followed outpatient with Dr. Wen. He saw Dr. Wen on April 09 and was taken off of his anticoagulant patient continues to take daily aspirin. Patient states that around 7:30 PM tonight he developed sudden this chest which persisted come to the ER for evaluation. - Related Data Previous Rx's Medication Instructions Recorded Amiodarone [Cordarone] 400 mg PO BID 30 Days #120 tab 07/16/22 Aspirin 81 mg PO DAILY #30 tab 07/16/22 Atorvastatin [Lipitor] 80 mg PO HS #30 tab 07/16/22 Nitroglycerin Sl Tabs [Nitrostat] 0.4 mg SUBLINGUAL Q5M PRN #30 tab 07/16/22 Spironolactone [Aldactone] 12.5 mg PO DAILY@1200 30 Days #15 07/16/22 tab Ticagrelor [Brilinta] 90 mg PO BID 30 Days #60 tab 07/16/22 carvediloL [Coreg] 3.125 mg PO BID-W/MEALS #60 tab 07/16/22 lisinopriL [Zestril] 2.5 mg PO DAILY #30 tab 07/16/22 Allergies Allergy/AdvReac Type Severity Reaction Status Date / Time sulfamethoxazole Allergy Rash/Hives Verified 04/21/24 22:44 [From Bactrim] trimethobenzamide Allergy Rash/Hives Verified 04/21/24 22:44 [From Tigan] trimethoprim [From Bactrim] Allergy Rash/Hives Verified 04/21/24 22:44 Review of Systems ROS Statement: Those systems with pertinent positive or pertinent negative responses have been documented in the HPI. ROS Other: All systems not noted in ROS Statement are negative. EKG Findings - EKG Comments: EKG Findings:: Interpreted by me, EKG obtained due to complaint of chest pain EKG obtained at 2251, rate is 68 rhythm is sinus normal axis, normal intervals OK 164 QRS 113 QTc [address] elevations in 2 3 and aVF as well as V3 there is significant ST depressions in aVL and V2 this is consistent with an acute inferior wall AL. When compared to EKG obtained in July 2022 there are significant changes indicating acute inferior wall AL. Past Medical History Past Medical History: Coronary Artery Disease (CAD), Myocardial Infarction ([place]) History of Any Multi-Drug Resistant Organisms: None Reported Past Surgical History: Heart Catheterization With Stent Past Psychological History: No Psychological Hx Reported Smoking Status: Former smoker Past Alcohol Use History: Rare Past Drug Use History: Marijuana General Exam - General Exam Comments Initial Comments: Physical Exam GENERAL: Chronically ill-appearing HENT: Normocephalic, Atraumatic. EYES: PERRL, EOMI PULMONARY: Unlabored respirations. No audible rales rhonchi or wheezing was noted. CARDIOVASCULAR: There is a regular rate and rhythm Palpable pulses in radial and DP ABDOMEN: Soft and nontender with normal bowel sounds. SKIN: Skin is clear with no lesions or rashes and otherwise unremarkable. : Deferred NEUROLOGIC: Patient is alert and oriented x3 Moving all extremities spontaneously MUSCULOSKELETAL: Normal extremities with adequate strength and full range of motion. No lower extremity swelling or edema. No calf tenderness. PSYCHIATRIC: Normal psychiatric evaluation. Limitations: no limitations Course Vital Signs 04/21/24 22:40 Temperature 98.3 F Pulse Rate 79 Respiratory 20 Rate Blood Pressure 124/78 O2 Sat by Pulse 97 Oximetry Chest Pain MDM - MDM Was pt. sent in by a medical professional or institution (MARGARITA Leblanc, TUMBLING [employer]REL PAINTER, urgent care, hospital, or intermediate...) When possible be specific @ -No Did you speak to anyone other than the patient for history (EMS, parent, family, police, friend...)? What history was obtained from this source @ -No Did you review nursing and triage notes (agree or disagree)? Why? @ -I reviewed and agree with nursing and triage notes Were old charts reviewed (outside hosp., previous admission, EMS record, old EKG, old radiological studies, urgent care reports/EKG's, intermediate records)? Report findings @ -Previous EKG is reviewed Differential Diagnosis (chest pain, altered mental status, abdominal pain women, abdominal pain men, vaginal bleeding, weakness, fever, dyspnea, syncope, headache, dizziness, GI bleed, back pain, seizure, CVA, palpatations, mental health)? @ -Differential Chest Pain: Stable Angina, Unstable Angina, STEMI, NSTEMI Aortic Dissection, Pneumothorax, Musculoskeletal, Esophageal Spasm GERD, Cholecystitis, Pancreatitis, Zoster, th is is not meant to be an all-inclusive list. EKG interpreted by me (3pts min.). @ -As above X-rays interpreted by me (1pt min.). @ -No widened mediastinum CT interpreted by me (1pt min.). @ -None done U/S interpreted by me (1pt. min.). @ -None done What testing was considered but not performed or refused? (CT, X-rays, U/S, labs)? Why? @ -None What meds were considered but not given or refused? Why? @ -Half dose aspirin was given as the patient had taken 2 baby aspirin prior to arrival Did you discuss the management of the patient with other professionals (professionals i.e. , PA, TUMBLING BARREL PAINTER, lab, RT, psych nurse, social media campaign manager, director of cardiac cath lab, teacher, credit officer, leather case finisher)? Give summary @ -Discussed with on-call fire lookout Dr. Wen within 5 minutes of the patient's arrival Was smoking cessation discussed for >3mins.? @ -No Was critical care preformed (if so, how long)? @ -Yes, 20 minutes Were there social determinants of health that impacted care today? How? (Homelessness, low income, unemployed, alcoholism, drug addiction, transportation, low edu. Level, literacy, decrease access to med. care, prison, rehab)? @ -No Was there de-escalation of care discussed even if they declined (Discuss DNR or withdrawal of care, Hospice)? DNR status @ -No What co-morbidities impacted this encounter? (DM, HTN, Smoking, COPD, CAD, Cancer, CVA, ARF, Chemo, Hep., AIDS, mental health diagnosis, sleep apnea, morbid obesity)? @ -Hyperlipidemia, CAD Was patient admitted / discharged? Hospital course, mention meds given and route, prescriptions, significant lab abnormalities, going to OR and other pertinent info. @ -Admit The patient was seen in triage and EKG was performed and was concerning for an acute AL, the EKG was immediately brought to my attention and the patient was brought to recess. STEMI was activated. Care was discussed with Dr. Wen. Plan was discussed with patient who is agreeable. Patient took aspirin, Lipitor and was given heparin. Patient declined narcotic pain medication. Blood pressure was not elevated and this is an inferior wall AL so nitro was held. Patient care was discussed with Steffanie the TUMBLING BARREL PAINTER for [facility] who accepts admission for STEMI. Undiagnosed new problem with uncertain prognosis? @ -Yes, STEMI Drug Therapy requiring intensive monitoring for toxicity (Heparin, Nitro, Insulin, Cardizem)? @ - Yes Heparin Were any procedures done? @ -No Diagnosis/symptom? @ -STEMI Acute, or Chronic, or Acute on Chronic? @ -Acute Uncomplicated (without systemic symptoms) or Complicated (systemic symptoms)? @ -Default Side effects of treatment? @ -No Exacerbation, Progression, or Severe Exacerbation? @ -No Poses a threat to life or bodily function? How? (Chest pain, USA, AL, pneumonia, PE, COPD, DKA, ARF, appy, cholecystitis, CVA, Diverticulitis, Homicidal, Suicidal, threat to staff... and all critical care pts) @ -Yes Disposition Clinical Impression: STEMI (ST elevation myocardial infarction) Disposition: ADMITTED IP TO THIS HOSP Condition: Serious Referrals: Mary Pete MD [Primary Care Provider] - 1-2 days
[2024-04-21] MEDS: ATORVASTATIN 80 MG TAB PO STA (23:01)
[2024-04-21] MEDS: ASPIRIN 81 MG PO STA (23:01)
[2024-04-21] MEDS: HEPARIN SODIUM 1,000 UN/ML (10ML VL) IV ONE (23:01)
--- NOTE | 2024-04-21 23:21 | XR ---
EXAM: XR Chest, 1 View CLINICAL HISTORY: chest pain TECHNIQUE: Frontal view of the chest. COMPARISON: Portable chest single view 07/13/2022 FINDINGS: Lungs: Unremarkable. No consolidation. The pulmonary vasculature demonstrates no significant radiographic abnormality. Pleural space: No definite pleural effusion or pneumothorax, accounting for limitations with supine technique. Heart: The cardiac silhouette is presumed within normal limits, accounting for portable supine technique. Mediastinum: The mediastinal contours are stable and unremarkable. The trachea is midline. Bones/joints: Stable remote posterior lateral left sixth and seventh rib fractures. No acute osseous abnormality. IMPRESSION: No acute cardiopulmonary process or significant alteration from the prior examination.
[2024-04-21 23:30] LABS: Basophils # (A) 0.1 k/uL (0-0.2); Basophils % (A) 0 %; Eosinophils % (A) 0 %; HCT 38.6 % (39.0-53.0); HGB 12.9 gm/dL (13.0-17.5); Lymphocytes # (A) 1.2 k/uL (1.0-4.8); Lymphocytes % (A) 8 %; MCH 31.8 pg (25.0-35.0); MCHC 33.5 g/dL (31.0-37.0); Mean Platelet Volume 8.2; Monocytes # (A) 0.5 k/uL (0-1.0); Monocytes % (A) 4 %; Neutrophils # (A) 12.6 k/uL (1.3-7.7); Neutrophils % (A) 87 %; Platelet Count 453 k/uL (150-450); RBC 4.07 m/uL (4.30-5.90); RDW 12.8 % (11.5-15.5); WBC 14.5 k/uL (3.8-10.6)
[2024-04-21] MEDS: LIDOCAINE 1% INJ 10MG/ML (20 ML MDV) SQ ONE (23:39)
[2024-04-21] MEDS: VERAPAMIL SYRINGE (5 MG/10 ML) INTRAARTER ONE (23:40)
[2024-04-21] MEDS: fentaNYL (PF) 50 MCG/1 ML VIAL IVP ONE (23:40)
[2024-04-21] MEDS: MIDAZOLAM 2 MG/2 ML VIAL IVP ONE (23:40)
[2024-04-21 23:43] LABS: INR 0.9 (<1.2); Partial Thromboplastin Time 23.1 sec (22.0-30.0); Prothrombin Time 10.3 sec (10.0-12.5)
[2024-04-21 23:45] LABS: ALT 98 U/L (4-49); AST 44 U/L (17-59); African American GFR (CKD) >90 (>60 ml/min/1.73 sqM); Albumin 3.9 g/dL (3.5-5.0); Alkaline Phosphatase 90 U/L (38-126); Anion Gap 9 mmol/L; Blood Urea Nitrogen 10 mg/dL (9-20); Calcium 9.1 mg/dL (8.4-10.2); Carbon Dioxide 27 mmol/L (22-30); Chloride 104 mmol/L (98-107); Glucose 156 mg/dL (74-99); Magnesium 1.7 mg/dL (1.6-2.3); Non-African American GFR(CKD) >90 (>60 ml/min/1.73 sqM); Potassium 3.6 mmol/L (3.5-5.1); Sodium 140 mmol/L (137-145); Total Bilirubin 0.6 mg/dL (0.2-1.3)
[2024-04-21] MEDS: HEPARIN SODIUM 1,000 UN/ML (10ML VL) IVP ONE (23:45)
[2024-04-21] MEDS: PHENYLEPHRINE-0.9% NACL SYG 1,000 MCG/10 ML SYRINGE IVP ONE (23:54)
[2024-04-21] MEDS: TICAGRELOR 90 MG TAB PO ONE (23:59)
[2024-04-22] MEDS: IOPAMIDOL-370 100ML BTL INJ ONE (00:09)
[2024-04-22] MEDS ORDERED: ATROPINE SULFATE 0.1 MG/ML 10ML SYRINGE IV PRN (00:19)
[2024-04-22] MEDS ORDERED: RX INFO: IV CONTRAST WAS GIVEN 1 EACH MISC MISCELLANE PRN (00:19)
[2024-04-22] MEDS ORDERED: NITROGLYCERIN SL TABS 0.4 MG TAB SUBLINGUAL PRN (00:19)
[2024-04-22] MEDS ORDERED: ZOLPIDEM 5 MG TAB PO PRN (00:19)
[2024-04-22] MEDS ORDERED: MAG HYDROX/AL HYDROX/SIMETH 30 ML CUP PO PRN (00:19)
--- NOTE | 2024-04-22 00:25 | P.PCN ---
Date of Procedure: 04/22/24 Operative Findings: CARDIAC CATHETERIZATION AND PERCUTANEOUS CORONARY INTERVENTION PERFORMING PHYSICIAN: Mark Demarco MD, RPVI PROCEDURE PERFORMED: 1. Selective right and left coronary angiogram 2. Left heart catheterization 3. Successful stenting of mid RCA using 5.0 x 38 mm Xience ELY which was pos tdilated using 6 mm noncompliant balloon with an excellent angiographic results and reduction of stenosis from 100% to 0% 4. Adjunctive use of IVUS and aspiration thrombectomy 5. Ultrasound-guided access of the right radial art INDICATION: Acute inferior ST elevation myocardial infarction this 53-year-old gentleman who underwent PCI of the RCA in 2022 COMPLICATION: None APPROACH: Right radial artery LEVEL OF SEDATION: Moderate with the sedation time off 35 minutes PROCEDURE DESCRIPTION: After obtaining informed consent the patient was brought to the cardiac Architect Marine with right radial artery was cannulated using micropuncture technique under ultrasound guidance a micropuncture wire passed easily then I placed a 6 Divehi 11 cm sheath at the right radial artery and give the patient 2 mg of verapamil intra-arterial and 3000's of heparin intravenous. Selective right coronary angiogram was performed using JR4 guiding catheter. Subsequently I intervene on the RCA. Subsequently I did selective left coronary angiogram using JL 3.5 catheter. Then left heart catheterization was performed using the JR4 catheter which crossed the aortic valve then I did pullback across the valve. After reviewing the angiogram we decided to intervene on the RCA. Anticoagulation continued using heparin with continuous ACT monitoring. Subsequently I did wired the RCA using a run-through wire. I did aspiration thrombectomy with extraction of small piece of red thrombus. After that I did intravascular ultrasound which showed a diameter of the RCA around 6 mm. I deployed the largest stent on a shelf which is 5.0 x 38 mm stent which was postdilated using 6 mm NC balloon. Final angiogram and IVUS was performed and showed good results and the procedure was completed with no complication SELECTIVE CORONARY ANGIOGRAM: The right coronary artery: Large-caliber vessel and a dominant vessel with the RCA being occluded in the midportion with very late stent thrombosis Left main: Is angiographically normal The left circumflex: Large caliber vessel nondominant vessel with no evidence of high-grade stenosis The left anterior descending artery: Large-caliber vessel with mild disease involving the mid LAD by the bifurcation of a diagonal branch HEMODYNAMICS: The LVEDP was 15 mmHg with no significant gradient across aortic valve CONCLUSION: 1. Very late stent thrombosis of the mid RCA. I did perform PCI of the RCA as described above with reduction of stenosis from 100% to 0% 2. Mild disease involving the left coronary system 3. Normal left-sided filling pressure POSTPROCEDURE MANAGEMENT: 1. Dual antiplatelet therapy using aspirin and Brilinta for 12 month. Consider even doing triple therapy with adding small dose of Xarelto 2.5 mg p.o. twice daily 2. Aggressive cholesterol control 3. Follow-up with the patient
--- NOTE | 2024-04-22 00:29 | P.CRDCN ---
History of Present Illness Consult date: 04/22/24 Chief complaint: Chest discomfort History of present illness: The patient is a 53-year-old gentleman who is known to our service from before with a past medical history significant for CAD with prior stenting of the RCA was performed in the year of 2022 in the setting of acute coronary syndrome and known mild disease involving the left coronary system as well as history of ischemic cardiomyopathy as well as hypertension and dyslipidemia. He was in his usual state of health till earlier today when he started experiencing suddenly chest discomfort in the middle of the chest as a pressure on the chest with no radiation to the arms or neck or shoulders or back and no associated symptoms besides shortness of breath. No dizziness or lightheadedness and no presyncope or syncope. The EKG on arrival to the emergency department showed sinus mechanism with significant ST segment elevation inferiorly. With that he underwent an emergent heart catheterization which showed stent thrombosis of the mid RCA which consistent with very late stent thrombosis. The patient underwent a PCI of the RCA with a good angiographic results. The left coronary system has mild disease only. The left-sided filling pressure appears to be within normal limits. He tolerated the procedure very well and he was chest pain-free by the end of the procedure with significant improvement in the ST segment changes. His pressure has been marginal with a mean systolic pressure exceeding 65 mmHg. The physical examination is remarkable for regular rhythm with overall relatively stable vital signs with marginally low blood pressure and regular rate and rhythm and distant heart sounds and clear breathing sounds bilaterally and no edema was noted in the lower extremities Assessment Acute inferior ST elevation myocardial infarction with evidence of very late stent thrombosis History of CAD with prior stenting of the RCA in 2022 Ischemic cardiomyopathy Multiple comorbid conditions including hypertension and dyslipidemia Plan Continue the current medical regimen Dual antiplatelet therapy using aspirin and Brilinta Consider even triple therapy with adding small dose of Xarelto at 2.5 mg p.o. twice daily to aspirin and Brilinta Obtain an echocardiogram to assess the current status of the ejection fraction ICU admission Standard care of the right radial site Follow-up with the patient Past Medical History Past Medical History: Coronary Artery Disease (CAD), Myocardial Infarction ([place]) History of Any Multi-Drug Resistant Organisms: None Reported Past Surgical History: Heart Catheterization With Stent Past Psychological History: No Psychological Hx Reported Smoking Status: Former smoker Past Alcohol Use History: Rare Past Drug Use History: Marijuana Medications and Allergies Home Medications Medication Instructions Recorded Confirmed Type Amiodarone [Cordarone] 400 mg PO BID 30 Days #120 tab 07/16/22 Rx Aspirin 81 mg PO DAILY #30 tab 07/16/22 Rx Atorvastatin [Lipitor] 80 mg PO HS #30 tab 07/16/22 Rx Nitroglycerin Sl Tabs [Nitrostat] 0.4 mg SUBLINGUAL Q5M PRN #30 tab 07/16/22 Rx Spironolactone [Aldactone] 12.5 mg PO DAILY@1200 30 Days #15 07/16/22 Rx tab Ticagrelor [Brilinta] 90 mg PO BID 30 Days #60 tab 07/16/22 Rx carvediloL [Coreg] 3.125 mg PO BID-W/MEALS #60 tab 07/16/22 Rx lisinopriL [Zestril] 2.5 mg PO DAILY #30 tab 07/16/22 Rx Allergies Allergy/AdvReac Type Severity Reaction Status Date / Time sulfamethoxazole Allergy Rash/Hives Verified 04/21/24 22:44 [From Bactrim] trimethobenzamide Allergy Rash/Hives Verified 04/21/24 22:44 [From Tigan] trimethoprim [From Bactrim] Allergy Rash/Hives Verified 04/21/24 22:44 Physical Exam Vitals: Vital Signs Temp Pulse Resp BP Pulse Ox 04/21/24 23:15 67 18 127/89 99 04/21/24 22:40 98.3 F 79 20 124/78 97 Intake and Output 04/21/24 04/21/24 04/22/24 14:59 22:59 06:59 Other: Weight 80.739 kg Results 04/21/24 23:06 04/21/24 23:06 Cardiac Enzymes 04/21/24 Range/Units 23:06 AST 44 (17-59) U/L Coagulation 04/21/24 Range/Units 23:06 PT 10.3 (10.0-12.5) sec APTT 23.1 (22.0-30.0) sec CBC 04/21/24 Range/Units 23:06 WBC 14.5 H (3.8-10.6) k/uL RBC 4.07 L (4.30-5.90) m/uL Hgb 12.9 L (13.0-17.5) gm/dL Hct 38.6 L (39.0-53.0) % Plt Count 453 H (150-450) k/uL Comprehensive Metabolic Panel 04/21/24 Range/Units 23:06 Sodium 140 (137-145) mmol/L Potassium 3.6 (3.5-5.1) mmol/L Chloride 104 (98-107) mmol/L Carbon Dioxide 27 (22-30) mmol/L BUN 10 (9-20) mg/dL Creatinine 0.90 (0.66-1.25) mg/dL Glucose 156 H (74-99) mg/dL Calcium 9.1 (8.4-10.2) mg/dL AST 44 (17-59) U/L ALT 98 H (4-49) U/L Alkaline Phosphatase 90 (38-126) U/L Total Protein 7.0 (6.3-8.2) g/dL Albumin 3.9 (3.5-5.0) g/dL Current Medications Generic Name Dose Route Start Last Admin Trade Name Freq PRN Reason Stop Dose Admin Al Hydroxide/Mg Hydroxide 30 ml 04/22/24 00:19 Mag Hydrox/Al Hydrox/Simeth 30 Ml Cup PO Q4HR PRN Heartburn Amiodarone HCl 400 mg 04/22/24 09:00 Amiodarone 200 Mg Tab PO BID RYANNE Aspirin 81 mg 04/22/24 09:00 Aspirin 81 Mg PO DAILY RYANNE Atorvastatin Calcium 80 mg 04/22/24 21:00 Atorvastatin 80 Mg Tab PO HS RYANNE Atropine Sulfate 0.5 mg 04/22/24 00:19 Atropine Sulfate 0.1 Mg/Ml 10ml Syringe IV ONCE PRN Symptomatic Bradycardia Carvedilol 3.125 mg 04/22/24 07:30 Carvedilol 3.125 Mg Tab PO BID-W/MEALS RYANNE Sodium Chloride 1,000 ml/ IV 1,000 mls @ 75 mls/hr 04/22/24 00:30 Solution IV 04/22/24 06:29 .[id number] RYANNE Lisinopril 2.5 mg 04/22/24 09:00 Lisinopril 2.5 Mg Tab PO DAILY [facility] Miscellaneous Information 1 each 04/22/24 00:19 Rx Info: Iv Contrast Was Given 1 Each Misc MISCELLANE 04/24/24 00:20 DAILY PRN Per Protocol Naloxone HCl 0.2 mg 04/21/24 23:00 Naloxone 0.4 Mg/Ml 1 Ml Vial IV Q2M PRN Opioid Reversal Nitroglycerin 0.4 mg 04/22/24 00:19 Nitroglycerin Sl Tabs 0.4 Mg Tab SUBLINGUAL Q5M PRN Chest Pain Spironolactone 12.5 mg 04/22/24 12:00 Spironolactone 25 Mg Tab PO DAILY@1200 [facility] Ticagrelor 90 mg 04/22/24 09:00 Ticagrelor 90 Mg Tab PO BID [facility] Zolpidem Tartrate 5 mg 04/22/24 00:19 Zolpidem 5 Mg Tab PO HS PRN Insomnia Intake and Output 04/21/24 04/21/24 04/22/24 14:59 22:59 06:59 Other: Weight 80.739 kg Patient Weight 04/22/24 06:59 Weight 80.739 kg 04/21/24 23:06 04/21/24 23:06
[2024-04-22 00:37] LABS: Glucose,Whole Blood 171 mg/dL (70-110)
[2024-04-22] MEDS: SODIUM CHLORIDE 0.9% 1,000 ML in EMPTY BAG 1 BAG IV SCH (00:59)
[2024-04-22 06:27] LABS: HCT 31.9 % (39.0-53.0); MCHC 34.6 g/dL (31.0-37.0); MCV 95.5 fL (80.0-100.0); Mean Platelet Volume 8.4; Platelet Count 378 k/uL (150-450); RBC 3.34 m/uL (4.30-5.90); RDW 12.8 % (11.5-15.5); WBC 7.6 k/uL (3.8-10.6)
[2024-04-22] MEDS: carvediloL 3.125 MG TAB PO SCH (06:44)
[2024-04-22 06:52] LABS: African American GFR (CKD) >90 (>60 ml/min/1.73 sqM); Anion Gap 5 mmol/L; Blood Urea Nitrogen 12 mg/dL (9-20); Calcium 8.3 mg/dL (8.4-10.2); Carbon Dioxide 25 mmol/L (22-30); Chloride 107 mmol/L (98-107); Glucose 133 mg/dL (74-99); Non-African American GFR(CKD) >90 (>60 ml/min/1.73 sqM); Potassium 3.7 mmol/L (3.5-5.1); Sodium 137 mmol/L (137-145)
--- NOTE | 2024-04-22 08:41 | P.HPIM ---
History of Present Illness This is a pleasant 53 years old male with past medical history of multiple medical problems Presents to the hospital yesterday complaining from shortness of breath and chest tightness for a few hours duration. No specific GI/pulm symptoms, no headache dizziness weakness numbness He denies smoking or alcohol, he uses marijuana occasionally. On presentation he is hemodynamically stable EKG showing ST elevation in the inferior leads II, III and aVF as well as V3-V4. He is currently hemodynamically stable blood pressure 104/73. Labs showing mild leukocytosis of 14.5, hemoglobin slightly anemic. Added 12 Chest x-ray reviewed by myself showing no acute process Patient currently on aspirin and Brilinta, risk of benefits of this dual antiplatelet therapy are explained for the patient in details and he agrees Continue with Coreg, amiodarone and lisinopril Aldactone and Lipitor Review of Systems Review of systems CONSTITUTIONAL: No fever, no malaise, no fatigue. HEENT: No recent visual problems or hearing problems. Denied any sore throat. CARDIOVASCULAR: No orthopnea, PND, no palpitations, no syncope. PULMONARY: No shortness of breath, no cough, no hemoptysis. GASTROINTESTINAL: No diarrhea, no nausea, no vomiting, no abdominal pain. Normoactive bowel sounds. NEUROLOGICAL: No headaches, no weakness, no numbness. HEMATOLOGICAL: Denies any bleeding or petechiae. GENITOURINARY: Denies any burning micturition, frequency, or urgency. MUSCULOSKELETAL/RHEUMATOLOGICAL: Denies any joint pain, swelling, or any muscle pain. ENDOCRINE: Denies any polyuria or polydipsia. Past Medical History Past Medical History: Coronary Artery Disease (CAD), Myocardial Infarction ([place]) Last Myocardial Infarction Date:: 06/2022 History of Any Multi-Drug Resistant Organisms: None Reported Past Surgical History: Heart Catheterization With Stent Past Anesthesia/Blood Transfusion Reactions: No Reported Reaction Date of Last Stent Placement:: 06/2022 Past Psychological History: No Psychological Hx Reported Smoking Status: Former smoker Past Alcohol Use History: Rare Past Drug Use History: Marijuana Medications and Allergies Home Medications Medication Instructions Recorded Confirmed Type Amiodarone [Cordarone] 400 mg PO BID 30 Days #120 tab 07/16/22 Rx Aspirin 81 mg PO DAILY #30 tab 07/16/22 Rx Atorvastatin [Lipitor] 80 mg PO HS #30 tab 07/16/22 Rx Nitroglycerin Sl Tabs [Nitrostat] 0.4 mg SUBLINGUAL Q5M PRN #30 tab 07/16/22 Rx Spironolactone [Aldactone] 12.5 mg PO DAILY@1200 30 Days #15 07/16/22 Rx tab Ticagrelor [Brilinta] 90 mg PO BID 30 Days #60 tab 07/16/22 Rx carvediloL [Coreg] 3.125 mg PO BID-W/MEALS #60 tab 07/16/22 Rx lisinopriL [Zestril] 2.5 mg PO DAILY #30 tab 07/16/22 Rx Allergies Allergy/AdvReac Type Severity Reaction Status Date / Time sulfamethoxazole Allergy Rash/Hives Verified 04/21/24 22:44 [From Bactrim] trimethobenzamide Allergy Rash/Hives Verified 04/21/24 22:44 [From Tigan] trimethoprim [From Bactrim] Allergy Rash/Hives Verified 04/21/24 22:44 Physical Exam Vitals: Vital Signs Temp Pulse Resp BP BP Pulse Ox 04/22/24 03:00 65 17 104/73 96 04/22/24 02:45 60 19 108/71 95 04/22/24 02:30 73 21 107/71 95 04/22/24 02:15 69 15 100/72 96 04/22/24 02:00 65 16 99/70 96 04/22/24 01:45 64 17 103/71 95 04/22/24 01:30 63 12 103/78 97 04/22/24 01:15 72 15 101/68 97 04/22/24 01:00 70 12 108/52 97 04/22/24 00:45 97.7 F 74 15 106/72 99 04/22/24 00:34 97.7 F 18 106/72 95 04/21/24 23:15 67 18 127/89 99 04/21/24 22:40 98.3 F 79 20 124/78 97 Intake and Output 04/21/24 04/21/24 04/22/24 14:59 22:59 06:59 Intake Total 300 Output Total 150 Balance 150 Intake: IV 300 Sodium Chloride 0.9% 1, 300 000 ml In Empty Bag 1 bag @ 75 mls/hr IV .[id number] Rx#:[id number] Output: Urine 150 Other: # Voids 1 Weight 80.739 kg 81 kg GENERAL: The patient is alert and oriented x3, not in any acute distress. Well developed, well nourished. HEENT: Pupils are round and equally reacting to light. EOMI. No scleral icterus. No conjunctival pallor. Normocephalic, atraumatic. No pharyngeal erythema. No thyromegaly. CARDIOVASCULAR: S1 and S2 present. No murmurs, rubs, or gallops. PULMONARY: Chest is clear to auscultation, no wheezing , no crackles. ABDOMEN: Soft, nontender, nondistended, normoactive bowel sounds. No palpable organomegaly. MUSCULOSKELETAL: No joint swelling or deformity. EXTREMITIES: No cyanosis, clubbing, or pedal edema. NEUROLOGICAL: Gross neurological examination did not reveal any focal deficits. SKIN: No rashes. no petechiae. Results CBC & Chem 7: 04/22/24 05:25 04/22/24 05:25 Labs: Abnormal Lab Results - Last 24 Hours (Table) 04/21/24 04/21/24 04/21/24 Range/Units 23:06 23:06 23:06 WBC 14.5 H (3.8-10.6) k/uL RBC 4.07 L (4.30-5.90) m/uL Hgb 12.9 L (13.0-17.5) gm/dL Hct 38.6 L (39.0-53.0) % Plt Count 453 H (150-450) k/uL Neutrophils # 12.6 H (1.3-7.7) k/uL Glucose 156 H (74-99) mg/dL POC Glucose (mg/dL) (70-110) mg/dL ALT 98 H (4-49) U/L Troponin I 0.107 H* (0.000-0.034) ng/mL 04/22/24 Range/Units 00:35 WBC (3.8-10.6) k/uL RBC (4.30-5.90) m/uL Hgb (13.0-17.5) gm/dL Hct (39.0-53.0) % Plt Count (150-450) k/uL Neutrophils # (1.3-7.7) k/uL Glucose (74-99) mg/dL POC Glucose (mg/dL) 171 H (70-110) mg/dL ALT (4-49) U/L Troponin I (0.000-0.034) ng/mL Thrombosis Risk Factor Assmnt - Choose All That Apply Any of the Below Risk Factors Present?: Yes Each Factor Represents 1 point: Acute PA Other Risk Factors: No Thrombosis Risk Factor Assessment Total Risk Factor Score: 1 Thrombosis Risk Factor Assessment Level: Low Risk Assessment and Plan Assessment: Acute inferior ST elevation PA s/p cardiac cath and PCI to mid RCA on 04/21 done emergency. Coronary artery disease Mild leukocytosis Mild anemia Plan: Continue with dual antiplatelet therapy with aspirin and Brilinta Continue with Coreg, amiodarone and lisinopril Aldactone and Lipitor Cardiology team following closely Labs and medication were reviewed.. Continue same treatment. Continue with symptomatic treatment. Resume home medication. Monitor labs and vitals. DVT and GI prophylaxis. Further recommendations as per clinical course of the patient DVT prophylaxis: Subcutaneous heparin GI Prophylaxis: Pepcid Prognosis is guarded
[2024-04-22] MEDS: HEPARIN SODIUM,PORCINE 5,000 UNIT/ML 1 ML VIAL SQ SCH (08:54)
[2024-04-22] MEDS: FAMOTIDINE 20 MG/2 ML VIAL IV SCH (08:56)
[2024-04-22] MEDS: TICAGRELOR 90 MG TAB PO SCH (08:56)
[2024-04-22] MEDS: AMIODARONE 200 MG TAB PO SCH (08:56)
[2024-04-22] MEDS: ASPIRIN 81 MG PO SCH (08:56)
--- NOTE | 2024-04-22 11:55 | CA ---
Transthoracic Echo Report Name: Polo Kramer Age: 53 Gender: M : 1970 Exam Date: 04/22/2024 09:34 Exam Location: [facility] Ht (in): 73 Wt (lb): 178 Ordering Physician: Mark Demarco MD ([id number]) Attending/Referring Phys: Rehab Director Quin Rod RDCS Procedure CPT: Indications: ACS Cardiac Hx: Cath Technical Quality: Good Contrast 1: Total Dose (mL): Contrast 2: Total Dose (mL): MEASUREMENTS (Male / Female) Normal Values 2D ECHO LV Diastolic Diameter PLAX 4.9 cm 4.2 - 5.9 / 3.9 - 5.3 cm LV Systolic Diameter PLAX 4.7 cm IVS Diastolic Thickness 1.3 cm 0.6 - 1.0 / 0.6 - 0.9 cm LVPW Diastolic Thickness 1.2 cm 0.6 - 1.0 / 0.6 - 0.9 cm LV Relative Wall Thickness 0.5 RV Internal Dim ED PLAX 3.8 cm LA Systolic Diameter LX 3.7 cm 3.0 - 4.0 / 2.7 - 3.8 cm LV Diastolic Volume MOD BP 139.6 cm??? 67 - 155 / 56 - 104 cm??? LV Systolic Volume MOD BP 86.9 cm??? 22 - 58 / 19 - 49 cm??? LV Ejection Fraction MOD BP 37.8 % >= 55 % LV Cardiac Index MOD BP 1705.9 cm???/min???m??? LV Diastolic Volume MOD 4C 139.5 cm??? LV Systolic Volume MOD 4C 84.3 cm??? LV Ejection Fraction MOD 4C 39.6 % LV Cardiac Index MOD 4C 1786.2 cm???/min???m??? LV Diastolic Length 4C 8.6 cm LV Systolic Length 4C 7.4 cm LV Diastolic Volume MOD 2C 136.6 cm??? LV Systolic Volume MOD 2C 99.9 cm??? LV Ejection Fraction MOD 2C 26.9 % LV Cardiac Index MOD 2C 1189.8 cm???/min???m??? LV Diastolic Length 2C 8.3 cm LV Systolic Length 2C 7.3 cm LA Volume 89.7 cm??? 18 - 58 / 22 - 52 cm??? LA Volume Index 44.0 cm???/m??? 16 - 28 cm???/m??? M-MODE Aortic Root Diameter MM 3.6 cm LA Systolic Diameter MM 3.4 cm LA Ao Ratio MM 0.9 AV Cusp Separation MM 2.1 cm DOPPLER MV Area PHT 3.0 cm??? Mitral E Point Velocity 56.2 cm/s Mitral A Point Velocity 68.6 cm/s Mitral E to A Ratio 0.8 MV Deceleration Time 256.4 ms TR Peak Velocity 199.5 cm/s TR Peak Gradient 15.9 mmHg Right Ventricular Systolic Press 20.7 mmHg FINDINGS Left Ventricle Left ventricular ejection fraction is estimated at 20-25 %. Mildly increased septal wall thickness. Severely increased left ventricular systolic volume. Severely reduced global left ventricular systolic function. Right Ventricle Normal right ventricular size and function. . Right ventricular systolic pressure within normal limits. Right Atrium Mild right atrial dilatation. Left Atrium Mildly increased left atrial area. Mitral Valve Structurally normal mitral valve. Mild mitral regurgitation. No mitral stenosis. Aortic Valve Trileaflet aortic valve. No aortic valve stenosis or regurgitation. Tricuspid Valve Structurally normal tricuspid valve. Mild tricuspid regurgitation. No tricuspid stenosis. Pulmonic Valve Structurally normal pulmonic valve. Trace pulmonic regurgitation. No pulmonic stenosis. Pericardium No pericardial or pleural effusion. Aorta Normal size aortic root and proximal ascending aorta. CONCLUSIONS LVEF 20% Mild increased LV cavity size. Severe reduced global LV systolic function. Inferior wall hypokinesia Mild biatrial dilatation Mild mitral regurgitation Mild tricuspid regurgitation Previewed by: Dr Jun Boyer (Electronically Signed) Final Date: 22 April 2024 11:54
[2024-04-22] MEDS: SPIRONOLACTONE 25 MG TAB PO SCH (12:12)
[2024-04-22 13:41] VITALS: BMI 23.6
[2024-04-22] MEDS: ATORVASTATIN 80 MG TAB PO SCH (20:52)
[2024-04-23] MEDS ORDERED: DAPAGLIFLOZIN PROPANEDIOL 10 MG TABLET PO SCH (09:00)
[2024-04-23 09:28] VITALS: TEMP 98
--- NOTE | 2024-04-23 11:15 | P.PN ---
Subjective HISTORY OF PRESENT ILLNESS: The patient is a 53-year-old gentleman who is known to our service from before with a past medical history significant for CAD with prior stenting of the RCA was performed in the year of 2022 in the setting of acute coronary syndrome and known mild disease involving the left coronary system as well as history of isch emic cardiomyopathy as well as hypertension and dyslipidemia. He was in his usual state of health till earlier today when he started experiencing suddenly chest discomfort in the middle of the chest as a pressure on the chest with no radiation to the arms or neck or shoulders or back and no associated symptoms besides shortness of breath. No dizziness or lightheadedness and no presyncope or syncope. The EKG on arrival to the emergency department showed sinus mechanism with significant ST segment elevation inferiorly. With that he underwent an emergent heart catheterization which showed stent thrombosis of the mid RCA which consistent with very late stent thrombosis. The patient underwent a PCI of the RCA with a good angiographic results. The left coronary system has mild disease only. The left-sided filling pressure appears to be within normal limits. He tolerated the procedure very well and he was chest pain-free by the end of the procedure with significant improvement in the ST segment changes. His pressure has been marginal with a mean systolic pressure exceeding 65 mmHg. The physical examination is remarkable for regular rhythm with overall relatively stable vital signs with marginally low blood pressure and regular rate and rhythm and distant heart sounds and clear breathing sounds bilaterally and no edema was noted in the lower extremities 04/23/2024 Patient examined this morning at the bedside. Patient is status post cardiac catheterization with stenting to the mid RCA. Patient currently denies any chest pain or pressure. He denies any shortness of breath. He has been up ambulating without difficulty. Telemetry reveals sinus mechanism with heart rate in the 60s. Echocardiogram completed revealing ejection fraction 2024%, inferior wall hypokinesia, mild biatrial dilatation, mild MR, mild TR. PHYSICAL EXAM: VITAL SIGNS: Reviewed. GENERAL: Well-developed in no acute distress. NECK: Supple. No JVD or thyromegaly LUNGS: Respirations even and unlabored. Lungs essentially clear to auscultation bilaterally. HEART: Regular rate and rhythm. S1 and S2 heard. EXTREMITIES: Normal range of motion. No clubbing or cyanosis. Peripheral pulses intact. No lower extremity edema ASSESSMENT: Acute inferior ST elevation myocardial infarction with evidence of very late stent thrombosis, status post PCI of the RCA History of CAD with prior stenting of the RCA in 2022 Ischemic cardiomyopathy Hypertension Hyperlipidemia PLAN: Continue dual antiplatelet therapy with aspirin and Brilinta. Patient requesting to be switched to Plavix as this is a once a day medication. Encouraged patient to stay on Brilinta for at least 1 month and then can switch to Plavix on an outpatient basis. Continue high intensity statin. LDL goal less than 70. Continue carvedilol, lisinopril, and Aldactone Discontinue amiodarone Discussed adding Farxiga. Patient states that he was prescribed this previously and was unable to take this as his co-pay is $300 a month. Will defer adding Farxiga at this time Additionally, discussed LifeVest with patient to prevent sudden cardiac . Patient states he was previously on a LifeVest and patient does not want a LifeV est at this time and states he will not wear it. Increase activity as tolerated If patient remains stable he may be discharged home this afternoon from a cardiac standpoint Nurse practitioner note has been reviewed by physician. Signing provider agrees with the documented findings, assessment, and plan of care documented by MANAGER ENTRY as a scribe. Objective - Vital Signs Vital signs: Vital Signs Temp 98 F 04/23/24 08:00 Pulse 64 04/23/24 08:00 Resp 17 04/23/24 08:00 BP 112/63 04/23/24 08:00 Pulse Ox 98 04/23/24 08:00 FiO2 Intake & Output 04/22/24 04/23/24 04/23/24 18:59 06:59 18:59 Intake Total 375 240 Output Total 150 Balance 225 240 Weight 81 kg 78.6 kg Intake: IV 375 Sodium Chloride 0.9% 1, 375 000 ml In Empty Bag 1 bag @ 75 mls/hr IV .[id number] [facility] Rx#:[id number] Oral 240 Output: Urine 150 Other: Voiding Method Urinal Urinal Toilet # Voids 1 1 # Bowel Movements 1 - Labs CBC & Chem 7: 04/22/24 05:25 04/22/24 05:25
[2024-04-23 11:33] VITALS: BP 136/86; PULSE 62; RESP 16
[2024-04-23] MEDS ORDERED: FAMOTIDINE 20 MG TAB PO SCH (21:00)
== END 2024-04-23 13:24 | disposition home or self-care (01) | DRG 322 ==
LOC: EC 22:38 → 2SICU 23:00 → 3SCARD 04-22 17:56
PROVIDERS: ADMIT Hospitalist; ATTEND Hospitalist
PROC: 027034Z Dilation of Coronary Artery, One Artery with Drug-eluting Intraluminal Device, Percutaneous Approach (ICD-10-PCS; principal; 2024-04-22)
PROC: 4A023N7 Measurement of Cardiac Sampling and Pressure, Left Heart, Percutaneous Approach (ICD-10-PCS; 2024-04-22)
PROC: B2111ZZ Fluoroscopy of Multiple Coronary Arteries using Low Osmolar Contrast (ICD-10-PCS; 2024-04-22)
PROC: B240ZZ3 Ultrasonography of Single Coronary Artery, Intravascular (ICD-10-PCS; 2024-04-22)
DX: I21.19 ST elevation (STEMI) myocardial infarction involving other coronary artery of inferior wall (principal); I10 Essential (primary) hypertension; I25.2 Old myocardial infarction; I25.5 Ischemic cardiomyopathy; I25.10 Atherosclerotic heart disease of native coronary artery without angina pectoris; F10.20 Alcohol dependence, uncomplicated; E78.5 Hyperlipidemia, unspecified; D64.9 Anemia, unspecified; K21.9 Gastro-esophageal reflux disease without esophagitis; Z71.6 Tobacco abuse counseling; Z79.02 Long term (current) use of antithrombotics/antiplatelets; Z79.82 Long term (current) use of aspirin; Z79.899 Other long term (current) drug therapy; Z87.891 Personal history of nicotine dependence
CPT/HCPCS: 71045; 80048; 80053; 83735; 84484; 85025; 85027; 85610; 85730; 87636; 92978; 93005; 93306; 93458; 96374; 99285

== ENCOUNTER 2024-05-12 17:16 | Emergency (ER) | payer BC ==
[2024-05-12 17:20] VITALS: RESP 20; TEMP 97.8
--- NOTE | 2024-05-12 17:49 | ED ---
Recheck HPI - General Chief Complaint: Recheck/Abnormal Lab/Rx Stated Complaint: Urogenital Time Seen by Provider: 05/12/24 17:38 Source: patient, RN notes reviewed, old records reviewed Mode of arrival: ambulatory Limitations: no limitations - History of Present Illness Initial Comments: This is a 53-year-old male to the ER for evaluation. Patient presents for hemorrhoidal bleeding, patient suffers from hemorrhoidal blood. Today's been holding pressure with no help MD Complaint: other (Bleeding hemorrhoid) -: days(s) Returns Today for: other Symptoms Since Prior Visit: worsening pain Context: planned re-check Associated Symptoms: none - Related Data Previous Rx's Medication Instructions Recorded Aspirin 81 mg PO DAILY #30 tab 04/23/24 Atorvastatin [Lipitor] 80 mg PO HS #30 tab 04/23/24 Spironolactone [Aldactone] 12.5 mg PO DAILY@1200 #15 tab 04/23/24 Ticagrelor [Brilinta] 90 mg PO BID #60 tab 04/23/24 carvediloL [Coreg] 3.125 mg PO BID-W/MEALS #60 tab 04/23/24 lisinopriL [Zestril] 2.5 mg PO DAILY #30 tab 04/23/24 Allergies Allergy/AdvReac Type Severity Reaction Status Date / Time sulfamethoxazole Allergy Rash/Hives Verified 05/12/24 17:20 [From Bactrim] trimethobenzamide Allergy Rash/Hives Verified 05/12/24 17:20 [From Tigan] trimethoprim [From Bactrim] Allergy Rash/Hives Verified 05/12/24 17:20 Review of Systems ROS Statement: Those systems with pertinent positive or pertinent negative responses have been documented in the HPI. ROS Other: All systems not noted in ROS Statement are negative. Past Medical History Past Medical History: Coronary Artery Disease (CAD), Myocardial Infarction ([place]) Last Myocardial Infarction Date:: 06/2022 History of Any Multi-Drug Resistant Organisms: None Reported Past Surgical History: Heart Catheterization With Stent Past Anesthesia/Blood Transfusion Reactions: No Reported Reaction Date of Last Stent Placement:: 06/2022 Past Psychological History: No Psychological Hx Reported Smoking Status: Former smoker Past Alcohol Use History: Rare Past Drug Use History: Marijuana General Exam Limitations: no limitations General appearance: alert, in no apparent distress Head exam: Present: atraumatic, normocephalic, normal inspection Eye exam: Present: normal appearance, PERRL, EOMI. Absent: scleral icterus, conjunctival injection, periorbital swelling ENT exam: Present: normal exam, mucous membranes moist Neck exam: Present: normal inspection. Absent: tenderness, meningismus, lymphadenopathy Respiratory exam: Present: normal lung sounds bilaterally. Absent: respiratory distress, wheezes, rales, rhonchi, stridor Cardiovascular Exam: Present: regular rate, normal rhythm, normal heart sounds. Absent: systolic murmur, diastolic murmur, rubs, gallop, clicks GI/Abdominal exam: Present: soft, normal bowel sounds. Absent: distended, tenderness, guarding, rebound, rigid Extremities exam: Present: normal inspection, full ROM, normal capillary refill. Absent: tenderness, pedal edema, joint swelling, calf tenderness Back exam: Present: normal inspection Neurological exam: Present: alert, oriented X3, CN II-XII intact Psychiatric exam: Present: normal affect, normal mood Skin exam: Present: warm, dry, intact, normal color. Absent: rash Course Vital Signs 05/12/24 05/12/24 17:17 18:40 Temperature 97.8 F Pulse Rate 55 L 52 L Respiratory 20 20 Rate Blood Pressure 157/87 144/74 O2 Sat by Pulse 100 97 Oximetry - Reevaluation(s) Reevaluation #1: Medical records reviewed Reevaluation #2: Patient symptoms unchanged Reevaluation #3: Patient informed of results questions answered Reevaluation #4: Was pt. sent in by a medical professional or institution (, PA, RN SURGERY, urgent care, hospital, or care home...) When possible be specific @ -no Did you speak to anyone other than the patient for history (EMS, parent, family, police, friend...)? What history was obtained from this source @ -no Did you review nursing and triage notes (agree or disagree)? Why? @ -agree Are old charts reviewed (outside hosp., previous admission, EMS record, old EKG, old radiological studies, urgent care reports/EKG's, care home records)? Report findings @ -yes Differential Diagnosis (chest pain, altered mental status, abdominal pain women, abdominal pain men, vaginal bleeding, weakness, fever, dyspnea, syncope, headache, dizziness, GI bleed, back pain, seizure, CVA, palpatations, mental health, musculoskeletal)? @ -prior EKG interpreted by me (3pts min.). @ -no X-rays interpreted by me (1pt min.). @ -no CT interpreted by me (1pt min.). @ -no U/S interpreted by me (1pt. min.). @ -no What testing was considered but not performed or refused? (CT, X-rays, U/S, labs)? Why? @ -none What meds were considered but not given or refused? Why? @ -none Did you discuss the management of the patient with other professionals (elliott jhaveri i.e. , PA, RN SURGERY, lab, RT, psych nurse, social worker aide, hostel manager, teacher, senior major gifts officer, corrections caseworker)? Give summary @ -no Was smoking cessation discussed for >3mins.? @ -no Was critical care preformed (if so, how long)? @ -no Were there social determinants of health that impacted care today? How? (Homelessness, low income, unemployed, alcoholism, drug addiction, transportation, low edu. Level, literacy, decrease access to med. care, retirement, rehab)? @ -none Was there de-escalation of care discussed even if they declined (Discuss DNR or withdrawal of care, Hospice)? DNR status @ -no What co-morbidities impacted this encounter? (DM, HTN, Smoking, COPD, CAD, Cancer, CVA, ARF, Chemo, Hep., AIDS, mental health diagnosis, sleep apnea, morbid obesity)? @ -none Was patient admitted / discharged? Hospital course, mention meds given and route, prescriptions, significant lab abnormalities, going to OR and other pertinent info. @ - 53 male with bleeding hemorrhoids here in the emergency room patient's hemorrhoid is injected with lidocaine with epi here patient has bleeding controlled and can be discharged home Undiagnosed new problem with uncertain prognosis? @ -no Drug Therapy requiring intensive monitoring for toxicity (Heparin, Nitro, Insulin, Cardizem)? @ -no Were any procedures done? @ -no Diagnosis/symptom? @ -Hemorrhoidal bleeding Acute, or Chronic, or Acute on Chronic? @ -Acute Uncomplicated (without systemic symptoms) or Complicated (systemic symptoms)? @ -Complicated Side effects of treatment? @ -no Exacerbation, Progression, or Severe Exacerbation? @ -exacerbation Poses a threat to life or bodily function? How? (Chest pain, [place], [place], pneumonia, PE, COPD, DKA, ARF, appy, cholecystitis, CVA, Diverticulitis, Homicidal, Suicidal, threat to staff... and all critical care pts) @ -no Medical Decision Making - Medical Decision Making 53 male with bleeding hemorrhoids here in the emergency room patient's hemorrhoid is injected with lidocaine with epi here patient has bleeding controlled and can be discharged home Disposition Clinical Impression: Bleeding hemorrhoid Disposition: HOME SELF-CARE Condition: Fair Instructions (If sedation given, give patient instructions): Hemorrhoids (ED), Hemorrhoids (DC) Is patient prescribed a controlled substance at d/c from ED?: No Referrals: Mary Pete MD [Primary Care Provider] - 1-2 days Time of Disposition: 18:40
[2024-05-12] MEDS: LIDOCAINE 1%-EPI 1:100,000 20 ML VIAL SQ STA (18:07)
[2024-05-12 18:41] VITALS: BP 144/74; PULSE 52
== END 2024-05-12 18:41 | disposition home or self-care (01) ==
LOC: EC 17:16
DX: K64.9 Unspecified hemorrhoids (principal); Z88.2 Allergy status to sulfonamides; Z88.1 Allergy status to other antibiotic agents; Z87.891 Personal history of nicotine dependence
CPT/HCPCS: 99283